=== PATIENT | female | born 1980 | race Caucasian/White ===

== ENCOUNTER 2019-03-23 15:01 | Outpatient (CLI) | payer OTHER, BC, SELFPAY ==
--- NOTE | ~2019-03-23 | US_ITS ---
EXAMINATION: US venous doppler [facility] DATE: 03/23/2019 15:28 INDICATION: Chronic left lower limb deep vein thrombosis. TECHNIQUE: Grayscale ultrasound images without and with compression and Doppler ultrasound images of the left lower extremity veins were obtained. COMPARISON: Ultrasound 11/29/2018 FINDINGS: The visualized portions of left common femoral vein, profunda (deep) femoral vein, femoral vein, popl iteal vein, peroneal veins, posterior tibial veins, and greater saphenous vein outflow are patent. IMPRESSION: 1. No deep venous thrombosis. Reviewed, dictated and finalized at location A. FACTURER REPRESENTATIVE
== END 2019-03-23 15:02 | disposition home or self-care (01) ==
LOC: ANHIMG 15:05
PROVIDERS: PCP Emergency Medicine; Visit Provider Internal Medicine Hematology & Oncology
DX: I82.5Z2 Chronic embolism and thrombosis of unspecified deep veins of left distal lower extremity (principal)
CPT/HCPCS: 93971

== ENCOUNTER 2019-04-18 01:45 | Day surgery (SDC) | payer OTHER, BC, SELFPAY ==
[2019-04-14 10:55] VITALS: BMI 33.7
[2019-04-18 10:03] VITALS: BP 146/86; PULSE 73; RESP 16; TEMP 37; O2SAT 97
[2019-04-18] MEDS: LACTATED RINGERS 1,000 ML 30 ML IV CONT ×2 (10:30→12:36)
--- NOTE | 2019-04-18 11:02 | P.PNAN_ITS ---
Anes - Initial Pre Proc Eval Procedure: Operation Date: 04/18/19 12:00 Proposed Procedures p Rectal Exam Under Anesthesia, Internal Hemorrhoid Rubber Banding - Chilo May DO Date/Time: 04/18/19 11:02 Surgeon: Chilo May DO Pre Op Diagnosis: grade 1 internal hemorrhoids Patient Data Age: 38 Gender: F Height: 5 ft 6 in Weight: 92.22 kg Last Vital Signs Temp 98.6 F 04/18/19 10:03 Pulse 73 04/18/19 10:03 Resp 16 04/18/19 10:03 BP 146/86 H 04/18/19 10:03 Pulse Ox 97 04/18/19 10:03 Allergies Allergy/AdvReac Type Severity Reaction Status Date / Time Penicillins Allergy Severe RASH, Verified 04/18/19 10:17 ANAPHALAXIS strawberry Allergy Severe Anaphylactic Verified 04/18/19 10:17 Shock erythromycin base Allergy Mild Rash Verified 04/18/19 10:17 codeine AdvReac Intermediate VOMITING, Verified 04/18/19 10:17 RASH morphine AdvReac Intermediate VOMITING, Verified 04/18/19 10:17 RASH Home Medications Medication Instructions Recorded Confirmed Type nifedipine 60 mg tablet,extended 60 mg PO DAILY #90 tablet 01/04/19 04/18/19 Rx release sertraline 100 mg tablet 100 mg PO DAILY 01/04/19 04/18/19 History apixaban [Eliquis DVT-PE Treat 30D 5 mg PO DAILY 04/18/19 04/18/19 History Start] Patient hx anesthesia problems: none Family hx anesthesia problems: none 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 Questions were solicited and answers provided to the satisfaction of the patient/family/POA.
--- NOTE | 2019-04-18 11:56 | WPDHPUPDATE1 ---
History and Physical Update Update Date/Time: 04/18/19 11:56 History and Physical has been reviewed, including an updated exam of the patient. There are NO changes in the patient's condition. Risks, benefits, and alternatives have been discussed and questions answered. Patient agrees to proceed with procedure.
[2019-04-18] MEDS: CLINDAMYCIN 900 MG/NS 50 ML 900 MG/50 ML PIGGYBACK 50 MG IVPB (12:06)
[2019-04-18] MEDS: LIDO 1%/EPINEPHRINE 1:100,000 20 ML VIAL 10 ML INFILTRATE (12:19)
[2019-04-18] MEDS: KETOROLAC 30 MG/ML VIAL (*BKC) IV PUSH (12:22)
[2019-04-18 12:35] VITALS: PULSE 74; RESP 16; O2SAT 95
--- NOTE | 2019-04-18 12:39 | P.OP_ITS ---
Procedure Note - Detailed Date of procedure: 04/18/19 Pre-op diagnosis: grade 1 internal hemorrhoids Post-op diagnosis: same Procedure performed: Rectal exam under anesthesia with internal hemorrhoid rubber band ligation x3 Description of procedure: * Procedure, risks, benefits, and alternatives were discussed with the patient. Written consent was obtained and placed in chart prior to procedure. Patient was brought back to surgical suite. She was placed supine on operating table. Time-out was done to confirm patient and procedure. She was then repositioned into dorsal lithotomy position in stirrups. Her perirectal area was prepped and draped in sterile fashion using Betadine prep. Digital rectal exam was initially performed. A Hill-Shoemaker anoscope was then inserted and the anal rectal canal was carefully inspected. Hemorrhoid rubber-band ligation was performed in the right anterior, right posterior, and left posterior regions. 1% lidocaine with epinephrine was infiltrated into the hemorrhoid tissue after it was rubber banded. Careful inspection was made and no other abnormalities were noted. The anoscope was then removed. Patient was then awakened from anesthesia and transferred to recovery. Anesthesia: MAC and local (1% lidocaine with epi) Surgeon: Chilo May DO Estimated blood loss (mL): 5 Complications: No immediate complications Condition: stable Disposition: same day Findings: This is a 38-year-old woman who presented with recurrent rectal bleeding. She has a history of complicated internal hemorrhoids, and underwent THD procedure 2 years ago. She had complications after this procedure including intense perirectal swelling and thrombosed external hemorrhoids which required further procedures to treat the thrombosed external hemorrhoids. She recovered eventually from this and no longer had any bleeding, but then over the past month she has noted recurrent bleeding. She has tried fiber supplement and Sitz baths along with Anusol HC suppositories. She has not had any significant relief with these measures. Discussions were made with the patient about treatment options. She had significant discomfort with digital rectal exam in the office, therefore recommendation was made for rectal exam under anesthesia with internal hemorrhoid rubber banding. Rectal exam under anesthesia was performed. The patient did not have any evidence of fissure, mass, or any other unexpected abnormality. She did have some engorged and somewhat friable hemorrhoid tissue. This appeared to be more predominant in the right posterior region, but also had significant hemorrhoids in the right anterior and left posterior regions. Internal hemorrhoid rubber banding was performed in all 3 locations. No specimens were obtained for pathology.
[2019-04-18 13:00] VITALS: BP 96/58; PULSE 64; O2SAT 97
[2019-04-18 13:30] VITALS: BP 100/60; PULSE 62; O2SAT 97
--- NOTE | 2019-04-18 13:57 | SUR.PHASEII ---
Patient was slow to wake-up after IV sedation. RN didn't get patient out of stretcher and to a chair until about 1355. Family invited to come sit with patient shortly after.
[2019-04-18 14:00] VITALS: BP 114/73; PULSE 70
[2019-04-18 14:30] VITALS: BP 112/73; PULSE 64
== END 2019-04-18 14:45 | disposition home or self-care (01) ==
PROVIDERS: PCP Emergency Medicine; Visit Provider Surgery
PROC: (CPT 46221; principal; 2019-04-18 12:00)
DX: K64.0 First degree hemorrhoids (principal); I10 Essential (primary) hypertension; Z87.891 Personal history of nicotine dependence
CPT/HCPCS: 46221; A9270; J1100; J1885; J2250; J2405; J2704; J3010; J7120

== ENCOUNTER 2019-08-25 11:30 | Outpatient (CLI) | payer OTHER, BC, SELFPAY ==
--- NOTE | ~2019-08-25 | US_ITS ---
EXAMINATION: US pelvic complete w TV DATE: 08/25/2019 12:11 INDICATION: Left lower quadrant abdominal pain TECHNIQUE: Multiple transabdominal and endovaginal sonographic images of the pelvis were obtained. COMPARISON: 07/27/2006 FINDINGS: The uterus is not visualized and is reportedly surgically absent. The vaginal cuff is unremarkable. N o abnormal mass or fluid collections identified at the uterine fossa. The right ovary is not visualiz ed and is also reportedly surgically absent. No abnormal mass at the right adnexa. The left ovary janett sures 3.9 x 2.8 x 2.0 cm. There are a few small anechoic follicles in the left ovary the largest harper uring up to 1.3 cm. Vascular flow is identified in the left ovary on color Doppler with both venous a nd low resistance arterial waveforms. IMPRESSION: 1. A few follicles measuring up to 1.3 cm the left ovary which demonstrates normal arterial and venou s flow on color Doppler. 2. Status post hysterectomy and right oophorectomy with no abnormal mass or fluid collections at the uterine fossa or right adnexa. Reviewed, dictated and finalized at location A. IMPRESSION: 1. A few follicles measuring up to 1.3 cm the left ovary which demonstrates nor mal arterial and venous flow on color Doppler. 2. Status post hysterectomy and right oophorectomy with no abnormal mass or flu id collections at the uterine fossa or right adnexa.
== END 2019-08-25 11:31 | disposition home or self-care (01) ==
PROVIDERS: PCP Emergency Medicine; Visit Provider Obstetrics & Gynecology
DX: R10.32 Left lower quadrant pain (principal); Z90.710 Acquired absence of both cervix and uterus; Z90.721 Acquired absence of ovaries, unilateral
CPT/HCPCS: 76830; 76856

== ENCOUNTER 2019-08-29 12:28 | Outpatient (CLI) | payer OTHER, BC, SELFPAY ==
--- NOTE | ~2019-08-29 | CT_ITS ---
EXAMINATION: CT abdomen pelvis w con DATE: 08/29/2019 13:49 INDICATION: Left lower quadrant abdominal pain TECHNIQUE: Computed tomography (CT) of the abdomen and pelvis was performed with 100 cc Omnipaque 350 intravenous contrast. Automated exposure control and iterative reconstruction technique were employe d. Exam dose: 732.00 mGy-cm total exam DLP. COMPARISON: None. FINDINGS: There is minimal discoid atelectasis or scarring in the posterior left lung base, mild bila teral dependent lower lobe atelectasis. The included lower lung zones are otherwise clear. Mild cardiomegaly. No pericardial or pleural effusion. The gallbladder is present. No gallbladder wall thickening or pericholecystic fluid or inflammation. No bile duct or pancreatic duct dilatation. No hepatic, splenic, pancreatic, and adrenal space-occupying mass lesion is evident. Normal appendix. No bowel obstruction, bowel wall thickening, pneumatosis or intraperitoneal free air is evident. There is diverticulosis of the sigmoid colon but no CT evidence of diverticulitis is det ected. The urinary bladder is unremarkable. The uterus and right ovary are absent. There are multiple left o varian cysts measuring up to 1.6 cm approximately. Normal caliber of the abdominal aorta. No intraperitoneal or retroperitoneal or pelvic mass lesion or adenopathy or ascites. IMPRESSION: Diverticulosis of the colon; no CT evidence of diverticulitis Normal appendix Status post hysterectomy and right oophorectomy; multiple up to 1.6 in the medial left ovarian cysts Reviewed, dictated and finalized at Location A. Reviewed, dictated and finalized at location B. IMPRESSION: Diverticulosis of the colon; no CT evidence of diverticulitis Normal appendix Status post hysterectomy and right oophorectomy; multiple up to 1.6 in the medi al left ovarian cysts
[2019-08-29 13:35] LABS: Estimated Glomerular Filt Rate > 60
== END 2019-08-29 12:29 | disposition home or self-care (01) ==
PROVIDERS: PCP Emergency Medicine; Visit Provider Obstetrics & Gynecology
DX: R10.32 Left lower quadrant pain (principal); K57.90 Diverticulosis of intestine, part unspecified, without perforation or abscess without bleeding; N83.202 Unspecified ovarian cyst, left side; Z90.710 Acquired absence of both cervix and uterus
CPT/HCPCS: 36415; 74177; Q9967

== ENCOUNTER 2019-09-02 07:02 | Outpatient (CLI) | payer OTHER, BC, SELFPAY | END 2019-09-02 07:03 | disposition home or self-care (01) | PROVIDERS: PCP Emergency Medicine; Visit Provider Obstetrics & Gynecology | DX: R10.2 Pelvic and perineal pain (principal); Z01.812 Encounter for preprocedural laboratory examination | CPT/HCPCS: 36415; 86850; 86900; 86901 ==

== ENCOUNTER 2019-09-02 10:43 | Emergency (ER) | payer OTHER, BC, SELFPAY ==
--- NOTE | ~2019-09-02 | CT_ITS ---
EXAMINATION: CT abdomen pelvis w con EXAM DATE: 09/02/2019 11:53 INDICATION: Nausea vomiting and low abdominal pain. TECHNIQUE: Spiral CT of the abdomen and pelvis was performed following intravenous injection of 100 m L Omnipaque 350. Axial, coronal and sagittal images were reviewed. The dose-length product (DLP) fo r this examination was 793.62 mGy-cm. The exposure was tailored according to patient size (auto mA e xposure control), and iterative reconstruction (ASIR) was used as additional dose reduction technique . Comparison is made to prior examination from 08/29/2019. FINDINGS: The liver, spleen, adrenal glands and pancreas are unremarkable. Gallbladder is unremarkab le. No biliary obstruction. Portal and splenic veins are patent. Kidneys enhance symmetrically. T here is no hydronephrosis. The uterus is not identified and has likely been surgically resected. T he bladder is unremarkable. There is no retroperitoneal or pelvic lymphadenopathy. The appendix is normal. There is mild scattered colonic diverticulosis. There is no adjacent inflamm atory change to suggest diverticulitis. The stomach and small bowel are unremarkable. There is expec janki amount of colonic stool. No free intraperitoneal gas. The heart is normal in size. There are no pericardial or pleural effusions. The lung bases are unremarkable. There are no osteoblastic or osteolytic lesions identified. IMPRESSION: 1. No acute intra-abdominal findings. 2. Mild scattered colonic diverticulosis. Reviewed, dictated and finalized at location G.
--- NOTE | ~2019-09-02 | US_ITS ---
US pelvic complete DATE: 09/02/2019 12:49 INDICATION: Abdominal and pelvic pain. History of hysterectomy and right oophorectomy. TECHNIQUE: Real-time imaging of the pelvis via transabdominal approach. COMPARISON: 08/25/2019 pelvic ultrasound with transvaginal views 08/29/2019 CT abdomen pelvis FINDINGS: Surgically absent uterus and right ovary by clinical history. Approximately 1.7 x 10 x 1.5 cm left ovarian the left ovary measures 3.6 x 2.6 x 2.4 cm. There is vas cular flow to the left ovary and color flow imaging and Doppler analysis. No pelvic mass or abnormal pelvic fluid collection is noted otherwise. Cyst. IMPRESSION: Up to 1.7 cm left ovarian cyst Status post hysterectomy and right oophorectomy Reviewed, dictated and finalized at Location A. Reviewed, dictated and finalized at location A.
[2019-09-02 10:51] VITALS: BP 129/85; PULSE 76; RESP 18; TEMP 36.5; O2SAT 100
[2019-09-02] MEDS: ONDANSETRON INJ 4 MG/2 ML VIAL IV PUSH (11:11)
[2019-09-02] MEDS: SODIUM CHLORIDE 0.9% IV 1,000 ML 999 ML IV CONT (11:11)
[2019-09-02] MEDS: FAMOTIDINE 20 MG/2 ML VIAL IV PUSH (11:11)
[2019-09-02 11:20] LABS: Basophils Absolute Auto 0.1 K/mm3 (0.0-0.1); Basophils Percent Auto 0.7 % (0.2-1.2); Eosinophils Absolute Auto 0.4 K/mm3 (0-0.3); Eosinophils Percent Auto 3.8 % (0-4.4); Hematocrit 44.9 % (37.0-47.0); Hemoglobin 14.7 g/dL (12.0-15.0); Immature Granulocyte Absolute 0.02 K/mm3 (0.00-0.031); Immature Granulocyte Percent A 0.2 % (0-0.5); Lymphocytes Absolute Auto 1.79 K/mm3 (0.9-3.2); Lymphocytes Percent Auto 18.6 % (18.3-44.2); Mean Corpuscular HGB Conc 32.7 g/dl (32-36); Mean Corpuscular Hemoglobin 28.4 pg (26-34); Mean Corpuscular Volume 86.7 fl (80-100); Mean Platelet Volume 10.7 fl (7.4-10.4); Monocytes Absolute Auto 0.7 K/mm3 (0.1-0.6); Monocytes Percent Auto 7.6 % (2.6-8.5); Neutrophils Absolute Auto 6.6 K/mm3 (1.3-6.7); Neutrophils Percent Auto 69.1 % (45.5-73.1); Platelet Count Result 236 k/mm3 (150-375); Red Blood Count 5.18 M/mm3 (4.2-5.4); Red Cell Distribution Width 13.7 % (11.5-14.5); White Blood Count 9.6 K/mm3 (4.5-10.0)
[2019-09-02 11:21] LABS: Add Urine Microscopic? NO; Appearance Urine Clear (Clear); Bilirubin Urine Negative (Negative); Blood Urine Negative (Negative); Color Urine Colorless (Yellow); Glucose Urine UA Negative (Negative); Ketones Urine Negative (Negative); Leukocyte Esterase Ur Negative LEU/UL (Negative); Nitrate Urine Negative (Negative); Protein Urine Negative (Negative); Specific Grav Ur 1.004 (1.001-1.035); Urobilinogen Urine Negative mg/dL (<2.0)
[2019-09-02 11:35] LABS: Alanine Aminotransferase 25 U/L (4-35); Albumin Level 4.5 g/dL (3.5-5.1); Alkaline Phosphatase 96 U/L (38-126); Anion Gap 11.8 mmol/L (7-16); Aspartate Amino Transferase 41 U/L (14-36); Bilirubin,Total 0.2 mg/dL (0.2-1.3); Blood Urea Nitrogen 6 mg/dL (7-17); Calcium 9.3 mg/dL (8.4-10.2); Carbon Dioxide 30 mmol/L (22-30); Chloride 103 mmol/L (98-107); Estimated Glomerular Filt Rate > 60; Glucose 104 mg/dL (65-105); Lipase 32 U/L (23-300); Potassium 3.8 mmol/L (3.4-5.0); Sodium 141 mmol/L (137-145)
[2019-09-02 11:48] LABS: Estimated Glomerular Filt Rate > 60
[2019-09-02 12:09] VITALS: TEMP 36.5
[2019-09-02 12:17] VITALS: BP 115/70; PULSE 60; RESP 18; O2SAT 98
--- NOTE | 2019-09-02 12:26 | ED.ABDPAIN ---
HPI - Abdominal Pain General Chief Complaint: Abdominal Pain <LOGAN Robert Last Filed: 09/02/19 13:52> Stated Complaint: abd pain, n/v <LOGAN Robert Last Filed: 09/02/19 13:52> Time Seen by Provider: 09/02/19 10:47 <LOGAN Robert Last Filed: 09/02/19 13:52> Source: patient <LOGAN Robert Last Filed: 09/02/19 13:52> Mode of arrival: ambulatory <LOGAN Robert Last Filed: 09/02/19 13:52> Limitations: no limitations <LOGAN Robert Last Filed: 09/02/19 13:52> History of Present Illness HPI narrative: Patient is a 38-year-old female who presents to emergency department for evaluation of abdominal pain localized to the lower abdomen left-sided that is been present now for 10 days the initial day of pain onset patient noted aching pain that radiates to the back in the left lower abdomen patient denies similar occurrence in the past the next day she saw her landscape foreman who evaluated her and did pelvic ultrasound which was unremarkable patient then on Wednesday was reevaluated had CAT scan of the abdomen pelvis with contrast which was unremarkable and patient was started on ciprofloxacin which she has been taking with no improvement patient is also been on hydrocodone during this period and notes she has not had a bowel movement since when the pain began. Patient notes that she threw up twice today. Patient on arrival in the room in no distress. Patient denies any urinary or vaginal complaints or any URI symptoms. Patient is scheduled for laparoscopically following Wednesday by her landscape foreman to look for a cause of her pain <LOGAN Robert Last Filed: 09/02/19 13:52> Related Data Home Medications: Home Medications Medication Instructions Recorded Confirmed sertraline 100 mg tablet 100 mg PO DAILY 01/04/19 09/01/19 Linzess 1 tablet PO DAILY 09/01/19 09/01/19 aspirin 81 mg PO DAILY 09/01/19 09/01/19 folic acid 1 tablet PO DAILY 09/01/19 09/01/19 hydrocodone-acetaminophen 1 tablet PO DIRECTED PRN 09/01/19 09/01/19 <Dustin Tovar PA-C - Last Filed: 09/02/19 13:52> Allergies/Adverse Reactions: Allergies Allergy/AdvReac Type Severity Reaction Status Date / Time Penicillins Allergy Severe RASH, Verified 09/02/19 11:04 ANAPHALAXIS strawberry Allergy Severe Anaphylactic Verified 09/02/19 11:04 Shock erythromycin base Allergy Mild Rash Verified 09/02/19 11:04 codeine AdvReac Intermediate VOMITING, Verified 09/02/19 11:04 RASH morphine AdvReac Intermediate VOMITING, Verified 09/02/19 11:04 RASH <Dustin Tovar PA-C - Last Filed: 09/02/19 13:52> Review of Systems Review of Systems: All systems reviewed & are unremarkable except as noted in HPI and below <Dustin Tovar PA-C - Last Filed: 09/02/19 13:52> PMFSH Past Medical History Medical History: Medical History History of blood clots clots in the leg and lung HTN (hypertension) <Dustin Tovar PA-C - Last Filed: 09/02/19 13:52> Surgical History Surgical History: Surgical History H/O: hysterectomy <Dustin Tovar PA-C - Last Filed: 09/02/19 13:52> Social History Social History: Social History Smoking packs per day: 0.5 Smoking cigarettes per day: 10.0 Years smoked: 20 Smoking pack-years: 10.00 Smoking status: Former smoker Tobacco type: cigarettes Additional smoking assessment comments: QUIT 05/2018 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 HEAD: Normocep
[2019-09-02 12:33] VITALS: TEMP 36.5
[2019-09-02] MEDS: IBUPROFEN IV 800 MG/200 ML 800 MG/200 ML BAG 400 MG IVPB (12:33)
[2019-09-02 14:06] VITALS: BP 131/92; PULSE 65; RESP 18; O2SAT 100
[2019-09-02 23:05] LABS: SARS-CoV-2 RNA PCR Negative
== END 2019-09-02 14:07 | disposition home or self-care (01) ==
PROVIDERS: Emergency Medicine Emergency Medical Services; Emergency Provider General Practice; PCP Emergency Medicine
DX: N83.202 Unspecified ovarian cyst, left side (principal); K59.00 Constipation, unspecified; Z11.59 Encounter for screening for other viral diseases; I10 Essential (primary) hypertension; Z87.891 Personal history of nicotine dependence; K57.90 Diverticulosis of intestine, part unspecified, without perforation or abscess without bleeding
CPT/HCPCS: 36415; 74177; 76856; 80053; 81003; 81025; 83690; 85025; 87635; 96361; 96365; 96375; 99284; C9803; J0131; J1741; J2405; J7030; Q9967; U0003

== ENCOUNTER 2019-09-05 01:28 | Day surgery (SDC) | payer OTHER, BC, SELFPAY ==
[2019-09-01 11:51] VITALS: BMI 32.9
--- NOTE | 2019-09-04 09:48 | PM.IMHP ---
H&P: HPI History of Present Illness Chief complaint: Pelvic Pain Narrative: Donavan Matos is a 38 year old female Status post hysterectomy is admitted for diagnostic laparoscopy and possible left Salpingo-oophorectomy. She has severe pain. She had a complete workup for possibility of GI issues and has been negative. She had a scan in the ER which showed a left ovarian cyst risks and benefits of laparoscopy were reviewed. Review of Systems Review of Systems: All systems reviewed & are unremarkable except as noted in HPI and below PMFSH Past Medical History Medical History History of blood clots clots in the leg and lung HTN (hypertension) Surgical History Surgical History H/O: hysterectomy Family History Family History Other Family history of allergic disorder Family history of cardiovascular disease Family history of malignant neoplasm Hypertension Social History Social History Smoking packs per day: 0.5 Smoking cigarettes per day: 10.0 Years smoked: 20 Smoking pack-years: 10.00 Smoking status: Former smoker Tobacco type: cigarettes Additional smoking assessment comments: QUIT 05/2018 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 Gender identity (if verbalized by the patient): Female Spiritual care concerns: No Meds Home Medications and Allergies Home Medications Medication Instructions Recorded Confirmed Type nifedipine 60 mg tablet,extended 60 mg PO DAILY #90 tablet 01/04/19 09/01/19 Rx release sertraline 100 mg tablet 100 mg PO DAILY 01/04/19 09/01/19 History aspirin 81 mg PO DAILY 09/01/19 09/01/19 History folic acid 1 tablet PO DAILY 09/01/19 09/01/19 History hydrocodone-acetaminophen 1 tablet PO DIRECTED PRN 09/01/19 09/01/19 History glycerin (adult) 1 supp RECTAL DAILY PRN #3 each 09/02/19 Rx polyethylene glycol 3350 [Miralax] 17 gm PO BID #119 gm 09/02/19 Rx ciprofloxacin HCl 500 mg PO BID 09/04/19 09/04/19 History linaclotide [Linzess] 290 mcg PO DAILY 09/04/19 09/04/19 History ondansetron 4 mg PO Q6H PRN 09/04/19 09/04/19 History Allergies Allergy/AdvReac Type Severity Reaction Status Date / Time Penicillins Allergy Severe RASH, Verified 09/02/19 11:04 ANAPHALAXIS strawberry Allergy Severe Anaphylactic Verified 09/02/19 11:04 Shock erythromycin base Allergy Mild Rash Verified 09/02/19 11:04 codeine AdvReac Intermediate VOMITING, Verified 09/02/19 11:04 RASH morphine AdvReac Intermediate VOMITING, Verified 09/02/19 11:04 RASH Exam Const: General: no acute distress Eyes: General: appearance normal, both eyes and all related structures Neck: Neck: supple and no JVD Thyroid: thyroid normal Resp: Effort & Inspection: normal respiratory effort Auscultation: clear to auscultation bilaterally Cardio: Rate: regular rate Rhythm: regular rhythm GI: Inspection: non-distended GI Palp: Yes Soft to palpation, No Tenderness to palpation present (GI) and No Guarding due to palpation present (GI) Auscultation: normal bowel sounds : External Female Exam: normal external appearance Speculum Exam - Vagina: normal appearance of the vagina Speculum Exam - Cervix: Cervix absent Bimanual exam- vagina & uterus: uterus absent Bimanual Exam- Adnexa, other: tender (left) Skin: General skin exam: no rashes or lesions noted Extrem: General: normal to inspection and no edema Psych: Mental Status: mental status grossly normal Affect: normal affect Assessment and Plan Additional Plan Impression pelvic pain and ovarian cyst Plan: Diagnostic laparoscopy and possible left salpingo-oophorectomy
[2019-09-05] VITALS (8 sets, daily range): BP systolic 91–128; BP diastolic 60–87; PULSE 68–84; RESP 12–16; TEMP 36.9–37; O2SAT 96–100
--- NOTE | 2019-09-05 06:49 | WPDHPUPDATE1 ---
History and Physical Update Update Date/Time: 09/05/19 06:49 History and Physical has been reviewed, including an updated exam of the patient. There are NO changes in the patient's condition. Risks, benefits, and alternatives have been discussed and questions answered. Patient agrees to proceed with procedure.
--- NOTE | 2019-09-05 06:50 | WPDHPUPDATE1 ---
History and Physical Update Update Date/Time: 09/05/19 06:50 History and Physical has been reviewed, including an updated exam of the patient. There are NO changes in the patient's condition. Risks, benefits, and alternatives have been discussed and questions answered. Patient agrees to proceed with procedure.
--- NOTE | 2019-09-05 08:26 | WPDANESEPPF ---
Anes - Initial Pre Proc Eval Procedure: Operation Date: 09/05/19 13:30 Proposed Procedures p Diagnostic Laparoscopy - Elvin Heaton MD Date/Time: 09/05/19 08:26 Surgeon: Elvin Heaton MD Pre Op Diagnosis: Pelvic Pain Patient Data Age: 38 Gender: F Height: 1.68 m Weight: 92.53 kg Allergies Allergy/AdvReac Type Severity Reaction Status Date / Time Penicillins Allergy Severe RASH, Verified 09/02/19 11:04 ANAPHALAXIS strawberry Allergy Severe Anaphylactic Verified 09/02/19 11:04 Shock erythromycin base Allergy Mild Rash Verified 09/02/19 11:04 codeine AdvReac Intermediate VOMITING, Verified 09/02/19 11:04 RASH morphine AdvReac Intermediate VOMITING, Verified 09/02/19 11:04 RASH Home Medications Medication Instructions Recorded Confirmed Type nifedipine 60 mg tablet,extended 60 mg PO DAILY #90 tablet 01/04/19 09/01/19 Rx release sertraline 100 mg tablet 100 mg PO DAILY 01/04/19 09/01/19 History aspirin 81 mg PO DAILY 09/01/19 09/01/19 History folic acid 1 tablet PO DAILY 09/01/19 09/01/19 History hydrocodone-acetaminophen 1 tablet PO DIRECTED PRN 09/01/19 09/01/19 History glycerin (adult) 1 supp RECTAL DAILY PRN #3 each 09/02/19 09/04/19 Rx polyethylene glycol 3350 [Miralax] 17 gm PO BID #119 gm 09/02/19 09/04/19 Rx ciprofloxacin HCl 500 mg PO BID 09/04/19 09/04/19 History linaclotide [Linzess] 290 mcg PO DAILY 09/04/19 09/04/19 History ondansetron 4 mg PO Q6H PRN 09/04/19 09/04/19 History hydrocodone-acetaminophen [Partridge] 1 tablet PO Q4H PRN #30 tablet 09/05/19 Rx Patient hx anesthesia problems: none Family hx anesthesia problems: none PMFSH Past Medical History Medical History (Updated 09/05/19 @ 08:31 by Arturo Bustos MD) H/O long-term (current) use of anticoagulants History of blood clots clots in the leg and lung History of pulmonary embolus (PE) HTN (hypertension) Obesity Surgical History Surgical History H/O: hysterectomy Family History Family History Other Family history of allergic disorder Family history of cardiovascular disease Family history of malignant neoplasm Hypertension Social History Social History Smoking packs per day: 0.5 Smoking cigarettes per day: 10.0 Years smoked: 20 Smoking pack-years: 10.00 Smoking status: Former smoker Tobacco type: cigarettes Additional smoking assessment comments: QUIT 05/2018 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 Questions were solicited and answers provided to the satisfaction of the patient/family/POA.
[2019-09-05] MEDS: ACETAMINOPHEN 500 MG TABLET 1000 MG PO (12:11)
[2019-09-05] MEDS: LACTATED RINGERS 1,000 ML 30 ML IV CONT ×2 (12:19→14:51)
[2019-09-05] MEDS: KETOROLAC 15 MG/ML VIAL (*BKC) IV PUSH (12:22)
--- NOTE | 2019-09-05 13:52 | P.OP_ITS ---
Procedure Note - Detailed Date of procedure: 09/05/19 Pre-op diagnosis: Pelvic Pain Surgeon: Elvin Heaton MD Postop diagnosis: Pelvic pain/ left ovarian cyst / pelvic adhesions Procedure: Laparoscopy: Lysis of adhesions / left salpingo-oophorectomy EBL: 5Cc : Complications: None Findings: Absent uterus and right ovary and tube. Complex appearing left ovarian cyst. Multiple adhesions on the left. Anesthesia: General endotracheal Description of procedure: The patient was prepped draped in normal sterile fashion placed in the dorsal lithotomy position. Under excellent general trach anesthesia weighted speculum placed posterior fornix vagina. Sponge stick was placed in the bladder draining clear urine. The weighted speculum was removed. Gloves were changed. An infraumbilical incision made the Veress needle passed in the abdomen. Abdomen was filled with CO2 gas [id number]. The 5mm trocar was advanced under direct visualization assuring no injury. The patient was placed in Trendelenburg and suprapubic incision made the 5mm trocar advanced under direct visualization assuring no injury. A left upper quadrant incision made and the 10mm trocar advanced under direct visualization. The above findings were seen using a [place] tugged method for stretching the omentum and scar tissue from the bowel to the tube carefully avoiding injury to the bowel this was sharply dissected freeing this from the large moderate sized ovarian cyst. The infundibulopelvic structure was then skeletonized. This was serially clamped, burned, cut. This was then placed in Endo-Catch and removed through the left lower quadrant. Irrigation was undertaken until clear. The pelvis appeared clean after that after irrigation was performed. The lower site removed. The gas removed from the abdomen and the upper site removed the 4 O Monocryl a and closed with 4 Monocryl and Bro. Patient tolerated the procedure well and went to recovery in satisfactory condition. All sponge, needle, instrument counts were correct. There were no immediate complications
== END 2019-09-05 16:28 | disposition home or self-care (01) ==
PROVIDERS: PCP Emergency Medicine; Visit Provider Obstetrics & Gynecology
PROC: (CPT 49320; principal; 2019-09-05 13:30)
DX: R10.2 Pelvic and perineal pain (principal); N83.202 Unspecified ovarian cyst, left side; N73.6 Female pelvic peritoneal adhesions (postinfective); I10 Essential (primary) hypertension; E66.9 Obesity, unspecified; Z68.33 Body mass index [BMI] 33.0-33.9, adult; Z87.891 Personal history of nicotine dependence; Z79.82 Long term (current) use of aspirin
CPT/HCPCS: 58661; 88305; A9270; J0330; J1100; J1885; J2250; J2405; J2704; J3010; J7120

== ENCOUNTER 2019-09-18 15:23 | Outpatient (CLI) | payer OTHER, BC, SELFPAY ==
--- NOTE | ~2019-09-18 | US_ITS ---
EXAMINATION: US venous doppler LE RT DATE: 09/18/2019 16:15 INDICATION: Right lower limb pain. TECHNIQUE: Grayscale ultrasound images without and with compression and Doppler ultrasound images of the right lower extremity veins were obtained. COMPARISON: Ultrasound 10/25/2018 FINDINGS: The visualized portions of right common femoral vein, profunda (deep) femoral vein, femoral vein, pop liteal vein, peroneal veins, posterior tibial veins, and greater saphenous vein outflow are patent. IMPRESSION: 1. No deep venous thrombosis. Reviewed, dictated and finalized at location B.
== END 2019-09-18 15:24 | disposition home or self-care (01) ==
PROVIDERS: PCP Emergency Medicine; Visit Provider Obstetrics & Gynecology
DX: M79.669 Pain in unspecified lower leg (principal)
CPT/HCPCS: 93971

== ENCOUNTER 2019-12-11 09:57 | Outpatient (CLI) | payer OTHER, BC, SELFPAY | END 2019-12-11 09:58 | disposition home or self-care (01) | LOC: ANHLAB 09:59 | PROVIDERS: PCP Emergency Medicine; Visit Provider Internal Medicine Hematology & Oncology | DX: I82.5Z2 Chronic embolism and thrombosis of unspecified deep veins of left distal lower extremity (principal) | CPT/HCPCS: 36415; 81240 ==

== ENCOUNTER 2020-03-16 10:27 | Emergency (ER) | payer OTHER, BC, SELFPAY ==
--- NOTE | ~2020-03-16 | CT_ITS ---
EXAMINATION: CT brain wo con DATE: 03/16/2020 11:33 INDICATION: Left-sided headache. TECHNIQUE: Computed tomography (CT) of the head was performed without intravenous contrast. The mA wa s adjusted according to patient size. Iterative reconstruction technique was employed. The dose-lengt h product was 605.33 mGy-cm. COMPARISON: None FINDINGS: There is no intracranial hemorrhage, acute infarction, or abnormal intracranial mass lesion . The ventricles are normal in size. The orbits are normal. There is mild mucosal thickening in the p aranasal sinuses. The mastoid air cells are normal. IMPRESSION: 1. Normal brain. Reviewed, dictated and finalized at location A. ER BABYSITTER IMPRESSION: 1. Normal brain.
[2020-03-16 10:32] VITALS: BP 143/100; PULSE 85; RESP 20; TEMP 36.9; O2SAT 100
--- NOTE | 2020-03-16 11:18 | ED.HA ---
HPI - Headache General Chief Complaint: Headache Stated Complaint: headache Time Seen by Provider: 03/16/20 11:07 Source: patient Mode of arrival: ambulatory Limitations: no limitations History of Present Illness HPI Narrative: This is a 39-year-old female that presents to the emergency department for headaches x5 days. Reports the pain is on the left side of her head and pounding in nature. Associated with photophobia, nausea, and vomiting. Does report history of migraines years ago. Reports the headaches have continued to return every day. She did have some Fioricet that she has taken with little relief. Denies fever, stiff neck, weakness, or numbness. Related Data Home Medications Medication Instructions Recorded Confirmed alprazolam 2 mg tablet 2 mg PO DAILY PRN tablet 02/20/20 Allergies Allergy/AdvReac Type Severity Reaction Status Date / Time Penicillins Allergy Severe RASH, Verified 03/16/20 11:04 ANAPHALAXIS strawberry Allergy Severe Anaphylactic Verified 03/16/20 11:04 Shock erythromycin base Allergy Mild Rash Verified 03/16/20 11:04 codeine AdvReac Intermediate VOMITING, Verified 03/16/20 11:04 RASH morphine AdvReac Intermediate VOMITING, Verified 03/16/20 11:04 RASH Review of Systems Review of Systems: Narrative: CONSTITUTIONAL: Denies fever EYES: Reports visual changes GASTROINTESTINAL: Reports nausea, vomiting SKIN: Denies rash NEUROLOGIC: Reports headache. Denies numbness, or weakness. PSYCHIATRIC: Reports anxiety and depression. All systems reviewed & are unremarkable except as noted in HPI and below PMFSH Past Medical History Medical History H/O long-term (current) use of anticoagulants History of blood clots clots in the leg and lung History of pulmonary embolus (PE) HTN (hypertension) Obesity Surgical History Surgical History H/O: hysterectomy Family History Family History Other Family history of allergic disorder Family history of cardiovascular disease Family history of malignant neoplasm Hypertension Social History Social History Smoking packs per day: 0.5 Smoking cigarettes per day: 10.0 Years smoked: 20 Smoking pack-years: 10.00 Smoking status: Former smoker Tobacco type: cigarettes Additional smoking assessment comments: QUIT 05/2018 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 HEAD: Normocephalic, atraumatic. EYES: PERRLA and EOMI. ENT: Nares clear, no rhinorrhea or epistaxis. Mucous membranes moist. Oropharynx without tonsillar hypertrophy exudate or other lesions. Bilateral TMs pearly souza non-bulging NECK: Supple. No adenopathy or masses. CHEST: Clear to auscultation. No respiratory distress. No wheezes rales or rhonchi HEART: Regular rate and rhythm. No murmur heard. Normal peripheral pulses. EXTREMITIES: Normal range of motion. No edema. Strength equal in bilateral upper and lower extremities (5/5) SKIN: Warm, dry, no rash. NEURO: No focal deficits. Alert and oriented x3. Cranial nerves II through XII grossly intact. Normal hip motion PSYCH: Normal mood and affect Course Vital Signs Vital signs: Vital Signs Temperature 98.4 F 03/16/20 10:32 Pulse Rate 85 03/16/20 10:32 Respiratory Rate 20 03/16/20 10:32 Blood Pressure 143/100 H 03/16/20 10:32 Pulse Oximetry 100 03/16/20 10:32 Temperature 98.3 F 03/16/20 12:11 Pulse Rate 65 03/16/20 12:11 Respiratory Rate 18 03/16/20 12:11 Blood Pressure 117/90 03/16/20 12:11 Pulse Oximetry 97 03/16/20 12:11 MDM - Headache
[2020-03-16] MEDS: SODIUM CHLORIDE 0.9% IV 1,000 ML 999 ML IV CONT (11:56)
[2020-03-16] MEDS: METOCLOPRAMIDE HCL INJ 10 MG/2 ML VIAL IV PUSH (11:58)
[2020-03-16] MEDS: diphenhydrAMINE HCl INJ 50 MG/ML VIAL 25 MG IV PUSH (12:01)
[2020-03-16] MEDS: KETOROLAC 30 MG/ML VIAL (*BKC) IV PUSH (12:02)
[2020-03-16 12:11] VITALS: BP 117/90; PULSE 65; RESP 18; TEMP 36.8; O2SAT 97
[2020-03-16 13:00] VITALS: BP 123/81; PULSE 62; RESP 16; TEMP 37; O2SAT 99
[2020-03-16 14:00] VITALS: BP 113/78; PULSE 75; RESP 18; TEMP 36.7; O2SAT 98
[2020-03-16 15:00] VITALS: BP 121/75; PULSE 70; RESP 18; TEMP 36.4; O2SAT 99
== END 2020-03-16 15:00 | disposition home or self-care (01) ==
PROVIDERS: Emergency Provider Emergency Medicine; PCP Emergency Medicine
DX: R51.9 Headache, unspecified (principal); Z86.711 Personal history of pulmonary embolism; Z79.01 Long term (current) use of anticoagulants; I10 Essential (primary) hypertension; E66.8 Other obesity; Z68.29 Body mass index [BMI] 29.0-29.9, adult; Z87.891 Personal history of nicotine dependence
CPT/HCPCS: 70450; 96361; 96374; 96375; 99284; J0131; J1100; J1200; J1885; J2765; J7030

== ENCOUNTER 2020-04-22 07:40 | Outpatient (CLI) | payer OTHER, BC, SELFPAY ==
--- NOTE | ~2020-04-22 | MM_ITS ---
EXAMINATION: MM screening sea BI w elsie HISTORY: Screening TECHNIQUE: Craniocaudal and mediolateral oblique 3-D tomosynthesis images were obtained and synthetic 2-D images were generated. CAD analysis was submitted and interpreted. COMPARISON: 12/06/2018 BREAST PARENCHYMAL COMPOSITION: The breasts are heterogeneously dense, which may obscure small masses . FINDINGS: There is no evidence of suspicious mass, calcification, or architectural distortion to sugg est malignancy in either breast. There has been no suspicious interval change. IMPRESSION: 1. No mammographic evidence of malignancy. 2. Recommend routine screening mammography in one year. BI-RADS Category 1: Negative Reviewed, dictated and finalized at location A.
== END 2020-04-22 07:41 | disposition home or self-care (01) ==
LOC: ANHIMG 07:43
PROVIDERS: PCP Family Medicine; Visit Provider Obstetrics & Gynecology
DX: Z12.31 Encounter for screening mammogram for malignant neoplasm of breast (principal)
CPT/HCPCS: 77063; 77067

== ENCOUNTER 2020-05-01 07:34 | Outpatient (CLI) | payer OTHER, BC, SELFPAY ==
--- NOTE | ~2020-05-01 | MR_ITS ---
EXAMINATION: MR brain/brain stem wo con DATE: 05/01/2020 09:23 CDT INDICATION: Headache TECHNIQUE: Magnetic resonance imaging (MRI) of the brain and brainstem was performed without intraven ous contrast. Sequences included sagittal and axial T1-weighted SE, axial diffusion-weighted FS SE, a xial T2*-weighted GRE, axial T2-weighted FLAIR Propeller, and axial T2-weighted Propeller. Apparent d iffusion coefficient (ADC) maps were created. COMPARISON: CT dated 03/16/2020 FINDINGS: The brain volume and ventricular system are within normal limits. The brain parenchymal si gnal intensity pattern and souza/white matter is normal and there is no evidence of hemorrhage, space occupying masses or infarctions. The flow signal voids of the major arterial structures about the [place] and within the margaret r dural venous sinuses appear grossly unremarkable and patent. The seventh and eighth cranial nerve complexes are normal. The mid sagittal image demonstrates a normal craniovertebral junction and seamus us callosum. The paranasal sinuses are grossly unremarkable. IMPRESSION: 1: Unremarkable MRI of the brain. Reviewed, dictated and finalized at location A.
== END 2020-05-01 07:35 | disposition home or self-care (01) ==
PROVIDERS: PCP Family Medicine; Visit Provider Nurse Practitioner Family
DX: R51.9 Headache, unspecified (principal); R68.89 Other general symptoms and signs
CPT/HCPCS: 70551

== ENCOUNTER 2020-07-01 21:02 | Observation (INO) | payer OTHER, BC, SELFPAY ==
--- NOTE | ~2020-07-01 | CT_ITS ---
EXAMINATION: CT BRAIN W/O DATE: 07/01/2020 21:53 INDICATION: Numbness right side of face. TECHNIQUE: Computed tomography (CT) of the head was performed without intravenous contrast. The dose- length product was 605.33 mGy-cm. Automated exposure control and iterative reconstruction technique w ere employed. COMPARISON: CT dated 03/16/2020 FINDINGS: Normal brain parenchymal volume for age. Normal souza-white differentiation. No acute intrac ranial hemorrhage, infarction, mass or mass effect. No ventriculomegaly or midline shift. Midline sagittal images demonstrate a normal corpus callosum, c raniovertebral junction and sella turcica. Basilar cisterns are patent. Paranasal sinuses and mastoids are pneumatized. No depressed skull fractures. IMPRESSION: 1. No acute intracranial abnormality. Reviewed, dictated and finalized at location A.
--- NOTE | ~2020-07-01 | XR_ITS ---
EXAMINATION: XR chest 1V 07/01/2020 21:54 INDICATION: Right-sided body numbness PROCEDURE: AP view of the chest COMPARISON: 07/13/2016 FINDINGS: The lungs are clear. The cardiomediastinal silhouette is within normal limits. There are no pleural effusions. There is no pneumothorax suspected. IMPRESSION: 1: NO ACUTE CARDIOPULMONARY DISEASE. Reviewed, dictated and finalized at location A.
--- NOTE | ~2020-07-01 | MR_ITS ---
EXAMINATION: MR brain/brain stem wo/w con DATE: 07/02/2020 09:05 INDICATION: Right hemiparesis. TECHNIQUE: Magnetic resonance imaging (MRI) of the brain and brainstem was performed without and with 15 mL MultiHance intravenous contrast. Sequences included sagittal and axial T1-weighted FSE, axial diffusion-weighted FS EPI, axial T2*-weighted GRE, axial T2-weighted FLAIR Propeller, and axial T2-we ighted Propeller. Postcontrast sequences included axial and coronal T1-weighted FSE. Apparent diffusi on coefficient (ADC) maps were created. COMPARISON: Brain MRI 05/01/2020, head CT 07/01/2020 FINDINGS: There is no intracranial hemorrhage, acute infarction, or abnormal intracranial mass lesion . The ventricles are normal in size. There is mild mucosal thickening in sphenoid sinus. The orbits a re normal. The mastoid air cells are normal. IMPRESSION: 1. Normal brain. Reviewed, dictated and finalized at location B. IMPRESSION: 1. Normal brain.
--- NOTE | ~2020-07-01 | CT_ITS ---
EXAMINATION: CTA brain carotid DATE: 07/01/2020 23:01 CDT INDICATION: Right-sided weakness. TECHNIQUE: Computed tomographic angiography (CTA) of the head was performed without and with 100 mL O mnipaque-350 intravenous contrast. CTA of the neck was performed with intravenous contrast. The dose- length product was 1024.54 mGy-cm. Maximum intensity projection and volume rendered 3D-reconstruction s were created by the technologist on a separate workstation. Automated exposure control and iterativ e reconstruction technique were employed. COMPARISON: CT head dated 07/01/2020. FINDINGS: HEAD CTA: Vertebral arteries are codominant. The anterior, middle and posterior cerebral arteries are symmetric. No significant atherosclerotic changes identified. No evidence for aneurysm, stenosis or occlusion. NECK CTA: Thoracic aorta is unremarkable without aneurysm or dissection. The common carotid arteries are symmetric without significant atherosclerotic change. The internal and external carotid arteries are symmetric. No evidence for dissection or significant stenosis. Thyroid gland is unremarkable. There is 0% stenosis of the proximal right internal carotid artery relative to normal distal artery l umen diameter (NASCET criteria). There is 0% stenosis of the proximal left internal carotid artery re lative to normal distal artery lumen diameter. IMPRESSION: 1.: No significant abnormality of the arteries of the head or neck. No significant stenosis, occlusi on, dissection or aneurysm. Reviewed, dictated and finalized at location A. IMPRESSION: 1.: No significant abnormality of the arteries of the head or neck. No signifi cant stenosis, occlusion, dissection or aneurysm.
[2020-07-01 21:05] VITALS: BP 145/88; PULSE 74; RESP 14; TEMP 36.6; O2SAT 100
[2020-07-01 21:34] VITALS: BP 137/78; PULSE 73; RESP 18; TEMP 36.7; O2SAT 99
--- NOTE | 2020-07-01 21:39 | ECG_ITS ---
Measurements Intervals [place] Rate: 71 P: 47 PA: 180 QRS: 264 QRSD: 108 T: 18 QT: 401 QTc: 436 Interpretive Statements SINUS RHYTHM POSSIBLE LEFT ATRIAL ENLARGEMENT INCOMPLETE RIGHT BUNDLE BRANCH BLOCK POOR R WAVE PROGRESSION, ANTERIOR LEADS BORDERLINE T WAVE ABNORMALITY- ANTERIOR LEADS BASELINE ARTIFACT- II, III BORDERLINE ECG Electronically Signed On 07-02-2020 6:11:33 CDT by Mundo Acuna D.O.
[2020-07-01 22:01] LABS: Basophils Absolute Auto 0.1 K/mm3 (0.0-0.1); Basophils Percent Auto 0.9 % (0.2-1.2); Eosinophils Absolute Auto 0.6 K/mm3 (0-0.3); Eosinophils Percent Auto 6.2 % (0-4.4); Immature Granulocyte Absolute 0.03 K/mm3 (0.00-0.031); Immature Granulocyte Percent A 0.3 % (0-0.5); Lymphocytes Absolute Auto 2.86 K/mm3 (0.9-3.2); Lymphocytes Percent Auto 29.5 % (18.3-44.2); Mean Corpuscular HGB Conc 33.3 g/dl (32-36); Mean Corpuscular Hemoglobin 29.6 pg (26-34); Mean Corpuscular Volume 88.8 fl (80-100); Mean Platelet Volume 10.4 fl (7.4-10.4); Monocytes Absolute Auto 0.8 K/mm3 (0.1-0.6); Monocytes Percent Auto 8.1 % (2.6-8.5); Neutrophils Absolute Auto 5.3 K/mm3 (1.3-6.7); Platelet Count Result 221 k/mm3 (150-375); Red Blood Count 4.73 M/mm3 (4.2-5.4); Red Cell Distribution Width 13.1 % (11.5-14.5); White Blood Count 9.7 K/mm3 (4.5-10.0)
[2020-07-01 22:11] LABS: Prothrombin Time 13.4 Seconds (11.1-14.7)
[2020-07-01 22:12] LABS: Partial Thromboplastin Time 30.4 SECONDS (22.3-36.8)
[2020-07-01 22:13] LABS: Anion Gap 6 mmol/L (8-16); Blood Urea Nitrogen 7 mg/dL (7-17); Calcium 9.4 mg/dL (8.4-10.2); Carbon Dioxide 27 mmol/L (22-30); Chloride 108 mmol/L (98-107); Estimated CRCL calculation 99 ml/min; Estimated Glomerular Filt Rate > 60; Glucose 93 mg/dL (65-105); Potassium 3.5 mmol/L (3.4-5.0); Sodium 141 mmol/L (137-145)
[2020-07-01 22:25] LABS: Troponin I < 0.012 ng/mL (0.000-0.034)
--- NOTE | 2020-07-01 22:25 | ED.NEUROSD ---
HPI - Neuro Symptoms/Deficit General Chief Complaint: Neuro Symptoms/Deficit Stated Complaint: numbness/tingling Time Seen by Provider: 07/01/20 22:07 History of Present Illness HPI Narrative: 39 yo female w/ h/o htn, migraine presents to the ED for weakness. About 1530 today she began to experience numbness and heaviness on the right side of her face and body. She also noted some change in the sound of her voice, which she ascribes to tongue numbness. She feels that her symptoms have progressed mildly since that time. She also has a moderate headache. She has frequent migraines, but never these symptoms, and she feels that this is a different type of headache. Related Data Allergies Allergy/AdvReac Type Severity Reaction Status Date / Time Penicillins Allergy Severe RASH, Verified 07/02/20 00:56 ANAPHALAXIS strawberry Allergy Severe Anaphylactic Verified 07/02/20 00:56 Shock erythromycin base Allergy Mild Rash Verified 07/02/20 00:56 codeine AdvReac Intermediate VOMITING, Verified 07/02/20 00:56 RASH morphine AdvReac Intermediate VOMITING, Verified 07/02/20 00:56 RASH Review of Systems Review of Systems: All systems reviewed & are unremarkable except as noted in HPI and below Constitutional: Constitutional: Denies chills and Denies fever(s) ENT: Denies dizziness Cardiovascular: Cardiovascular: Denies chest pain Respiratory: Respiratory: Denies dyspnea Gastrointestinal: Gastrointestinal: Denies nausea and Denies vomiting Neurologic: Reports as per HPI PMF Past Medical History Medical History Bleeding internal hemorrhoids Encounter for follow-up of acute deep vein thrombosis (DVT) of right lower extremity Essential hypertension H/O long-term (current) use of anticoagulants History of blood clots clots in the leg and lung History of pulmonary embolus (PE) HTN (hypertension) Moderate episode of recurrent major depressive disorder Obesity PE (pulmonary thromboembolism) Thrombosed external hemorrhoid Tobacco abuse Surgical History Surgical History H/O: hysterectomy Family History Family History Father No problems noted. Mother No problems noted. Sibling No problems noted. 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 Gender identity (if verbalized by the patient): Female Spiritual care concerns: No Exam Const: General: healthy appearing, no acute distress and alert Orientation/consciousness: patient oriented x3 HENMT: Head: normal to inspection Eyes: Pupils: Equal, round and reactive pupils present EOM: EOMs intact bilaterally Resp: Effort & Inspection: normal respiratory effort Auscultation: clear to auscultation bilaterally Cardio: Rate: regular rate Rhythm: regular rhythm GI: GI Palp: Yes Soft to palpation and No Tenderness to palpation present (GI) Skin: General skin exam: normal color Neuro: General: patient oriented x3 and CN's II-XI intact bilaterally Cranial nerves: Yes CN's II-XII intact bilaterally, Yes Facial sensation intact/muscles of mastication intact, Yes Equal, round and reactive pupils present, Yes Normal facial strength present, Yes facial symmetry
[2020-07-01] MEDS: METOCLOPRAMIDE HCL INJ 10 MG/2 ML VIAL IV PUSH (22:43)
[2020-07-01] MEDS: SODIUM CHLORIDE 0.9% IV 1,000 ML 999 ML IV CONT (22:43)
[2020-07-01] MEDS: ACETAMINOPHEN 500 MG TABLET 1000 MG PO (22:43)
[2020-07-01 23:49] VITALS: BP 116/74; PULSE 70; RESP 18; O2SAT 96
[2020-07-02] MEDS: ASPIRIN 81 MG CHEWABLE TABLET 324 MG PO (00:22)
--- NOTE | 2020-07-02 00:41 | PC.NURSE ---
This patient, Donavan Matos, was admitted to [facility] Surg Room 300-01 @00:42. Report taken from Riana MATA. Patient/family oriented to hospital policies and general routines including ID bracelet, bed and alarms, visiting hours, pain management, procedures, bathroom and other care routines, personal items, smoking policy, room service/diet, and visiting hours. Information on how to activate the Rapid Response Team has been discussed. Patient/Family are encouraged to report perceived risks to care and to ask questions if they do not understand what they are told or what they should do.
[2020-07-02 00:44] VITALS: BMI 29.5
--- NOTE | 2020-07-02 00:53 | PM.IMHP ---
H&P: HPI History of Present Illness Date/Time: 07/02/20 00:53 Chief Complaint: HEADACHE Narrative: This is a 39-year-old female with past medical history significant for headaches not well controlled, tobacco dependence. Patient presented to the emergency room after she was driving home from work when she felt sudden onset of right-sided numbness from head to toe and had biliary vision of the right eye as well with headache in the occipital area patient states that she has never had a headache like these when prior episodes. She has been in her usual state of health she denies any nausea vomiting fevers rigors chills cough sputum production chest pain palpitation disease near syncope or syncope no leg swelling no weight loss or weight gain no polydipsia polyphagia or polyuria. Preliminary workup was essentially non revealing. Review of Systems Review of Systems: Narrative: Patient presented to the emergency room due to numbness of the right hemibody with blurry vision of the right side on and occipital headache Constitutional: Constitutional: Denies chills, Denies fatigue, Denies fever(s) and Denies weakness Eyes: Eyes: Reports blurry vision (Right eye) ENT: Denies vertigo, Denies dizziness, Denies ear discharge, Denies facial pain, Reports headache(s), Denies nasal congestion, Denies nasal discharge, Denies nasal obstruction and Denies disequilibrium Cardiovascular: Cardiovascular: Denies edema, Denies irregular heart rhythm, Denies leg edema, Denies lightheadedness, Denies palpitations, Denies dyspnea on exertion and Denies orthopnea Respiratory: Respiratory: Denies chest congestion, Denies cough, Denies dyspnea and Denies wheezing Gastrointestinal: Gastrointestinal: Denies abdominal pain, Denies heartburn, Denies nausea and Denies vomiting Genitourinary: Genitourinary: Denies dysuria Musculoskeletal: Musculoskeletal: Denies deformity, Denies arthralgias and Denies joint swelling Integumentary/Breasts: Skin/Breast: Denies rash Neurologic: Denies focal weakness and Reports tingling Psychiatric: Psychiatric: Reports anxiety Endocrine: Endocrine: Denies no additional endocrine complaints Hematologic/Lymphatic: Hematologic/Lymphatic: Denies no additional hematologic/lymphatic complaints Allergic/Immunologic: Allergic/Immunologic: Denies no additional allergic/immunologic complaints PMFSH Past Medical History Medical History Bleeding internal hemorrhoids Encounter for follow-up of acute deep vein thrombosis (DVT) of right lower extremity Essential hypertension H/O long-term (current) use of anticoagulants History of blood clots clots in the leg and lung History of pulmonary embolus (PE) HTN (hypertension) Moderate episode of recurrent major depressive disorder Obesity PE (pulmonary thromboembolism) Thrombosed external hemorrhoid Tobacco abuse Surgical History Surgical History H/O: hysterectomy Family History Family History Father No problems noted. Mother No problems noted. Sibling No problems noted. Other Family history of allergic disorder Family history of cardiovascular disease Family history of malignant neoplasm Hypertension Social History Social History (Updated 05/27/20 @ 15:42 by Camila Saudners) Smoking packs per day: 0.25 Smoking cigarettes per day: 5.0 Years smoked: 20 Smoking pack-years: 5.00 Smoking status: Current every day smoker Tobacco type: cigarettes Second hand tobacco smoke exposure: No Additional smoking assessment comments: QUIT 05/2018 Began again 05/2019 Alcohol intake: never Substance use: never Substance use type: does not use Additional occupation/education comments: [employer]. Gender identity (if verbalized by the patient): Female Spiritual care concerns: No Meds Michelle
[2020-07-02 02:15] VITALS: O2SAT 98
[2020-07-02 04:00] VITALS: PULSE 73
[2020-07-02 06:00] VITALS: BP 104/70; PULSE 65; RESP 18; TEMP 36.7; O2SAT 96
[2020-07-02 08:00] VITALS: PULSE 71
[2020-07-02] MEDS: TOPIRAMATE 25 MG TABLET PO (09:18)
[2020-07-02] MEDS: NIFEdipine 30 MG TAB.ER.24 60 MG PO (09:18)
[2020-07-02] MEDS: SERTRALINE HCL 50 MG TABLET 100 MG PO (09:18)
[2020-07-02] MEDS: FOLIC ACID 0.4 MG TABLET PO (09:18)
[2020-07-02] MEDS: ASPIRIN 81 MG ENTERIC TABLET PO (09:19)
--- NOTE | 2020-07-02 09:50 | WPDNEURCNPN ---
Assessment and Plan Assessment and plan (1) Anxiety: Code(s): F41.9 - Anxiety disorder, unspecified Status: Acute (2) Right sided weakness: Code(s): R53.1 - Weakness Status: Acute Additional Plan complaints of severe headache with normal neurological examination, negative CTA particularly there is no evidence of aneurysm , and MRI of the brain is normal, normal neurological examination at this stage only p.r.n. medications are recommended with the monitoring of the frequency of the headaches. And follow-up in the office Consult date: 07/02/20 Time Seen: 09:00 HPI: Donavan Matos is a 39 year old female admitted to the hospital for the complaints of severe headaches in addition to the ongoing history of tobacco dependence. Patient initially presented to the emergency room after she was driving home from work when she felt sudden onset of right-sided numbness from head to toe along with visual difficulties in the right eye and headaches located in the occipital area he complained of no other problems but reported she has never had such headaches in the past also she had no history of associated generalized symptomatology in the past she has ongoing history of acute deep vein thrombosis in the right lower extremity, hypertension long-term current use of anticoagulants, history of pulmonary embolus, and history of recurrent episodes of major depressive disorder, evaluation up until now includes the normal MRI of the brain in addition to normal CTA of the brain and initially negative CT scan of the head Review of Systems Review of Systems: All systems reviewed & are unremarkable except as noted in HPI and below PMFSH Past Medical History Medical History Bleeding internal hemorrhoids Encounter for follow-up of acute deep vein thrombosis (DVT) of right lower extremity Essential hypertension H/O long-term (current) use of anticoagulants History of blood clots clots in the leg and lung History of pulmonary embolus (PE) HTN (hypertension) Moderate episode of recurrent major depressive disorder Obesity PE (pulmonary thromboembolism) Thrombosed external hemorrhoid Tobacco abuse Surgical History Surgical History H/O: hysterectomy Family History Family History Father No problems noted. Mother No problems noted. Sibling No problems noted. Other Family history of allergic disorder Family history of cardiovascular disease Family history of malignant neoplasm Hypertension Social History Social History Smoking packs per day: 0.25 Smoking cigarettes per day: 5.0 Years smoked: 20 Smoking pack-years: 5.00 Smoking status: Current every day smoker Tobacco type: cigarettes Second hand tobacco smoke exposure: No Additional smoking assessment comments: QUIT 05/2018 Began again 05/2019 Alcohol intake: never Substance use: never Substance use type: does not use Additional occupation/education comments: [employer]. Gender identity (if verbalized by the patient): Female Spiritual care concerns: No Meds Home Medications and Allergies Home Medications Medication Instructions Recorded Confirmed Type aspirin 81 mg tablet,delayed 81 mg PO DAILY #90 tablet 02/20/20 07/02/20 Rx release folic acid 400 mcg tablet 0.4 mg PO DAILY #90 tablet 02/20/20 07/02/20 Rx nifedipine 60 mg tablet,extended 60 mg PO DAILY #90 tablet 02/20/20 07/02/20 Rx release sertraline 100 mg tablet 100 mg PO DAILY #90 tablet 02/20/20 07/02/20 Rx alprazolam 0.5 mg tablet 0.5 mg PO DAILY PRN #30 tablet 06/17/20 07/02/20 Rx topiramate 25 mg tablet 25 mg PO BID #60 tablet 06/17/20 07/02/20 Rx Allergies Allergy/AdvReac Type Severity Reaction Status Date / Time Penicillins Allergy Severe
[2020-07-02] MEDS: PANTOPRAZOLE 40 MG TABLET PO (11:08)
[2020-07-02] MEDS: ENOXAPARIN 40 MG/0.4 ML SYRINGE SUB-Q (11:08)
[2020-07-02] MEDS: ACETAMINOPHEN 500 MG TABLET 1000 MG PO (11:52)
[2020-07-02 12:00] VITALS: PULSE 72
[2020-07-02 14:00] VITALS: BP 117/79; PULSE 74; RESP 16; TEMP 36.1; O2SAT 97
--- NOTE | 2020-07-02 14:38 | PM.DS ---
DS: Admitting Diagnosis Admitting Diagnosis Admitting Diagnosis: Paresthesias DS: Discharge Diagnosis Discharge Diagnosis (1) Paresthesia: Code(s): R20.2 - Paresthesia of skin Status: Acute (2) Right sided weakness: Code(s): R53.1 - Weakness Status: Acute (3) Persistent headaches: Code(s): R51.9 - Headache, unspecified Status: Acute (4) Tobacco abuse: Code(s): Z72.0 - Tobacco use Status: Acute (5) Anxiety: Code(s): F41.9 - Anxiety disorder, unspecified Status: Acute (6) HTN (hypertension): Code(s): I10 - Essential (primary) hypertension Status: Acute DS: Summary Hospital Course Reason for hospitalization: Patient is a 39-year-old woman with a history of migraines, anxiety, who presents emergency room with numbness and tingling to the right side of her face, then developed right eye blurry vision, numbness, tingling, weakness to her right arm and leg prior to arrival. Patient denies any similar symptoms before. Initial vitals showed afebrile, heart rate 74, respiratory rate 14, blood pressure 145/88, oxygenation 100% on room air. CBC with differential normal, normal coag panel, BMP normal, troponin normal. Chest x-ray shows no acute cardiopulmonary disease. CT head showed no acute intracranial abnormality. CTA head and neck showed No significant abnormality of the arteries of the head or neck. No significant stenosis, occlusion, dissection or aneurysm. MRI showed Normal brain. Neurology was consulted, Dr. May, who evaluated the patient and reviewed her images and felt that her symptoms were related to starting Topamax recently. The patient was told to stop taking Topamax and her symptoms should improve over the next few days. Follow-up with her primary care provider Dr. Javier, whom I also called to inform him of her hospitalization. I informed the patient we have ruled out any acute stroke, aneurysm or other cause to her symptoms. Keep taking Tylenol and [id number] medications for her breakthrough headaches. Return to the emergency room with new or worsening neurologic symptoms for further evaluation. The patient does feel comfortable with going home at this time to stop taking her Topamax and follow-up with her primary care provider and neurologist as an outpatient. The patient understands and agrees the plan all questions answered. Hospital Course: See above Status at Discharge Cognitive/behavioral status at discharge: Stable, improved. Time Spent with Patient Time attestation: Total time spent providing and/or coordinating discharge services: 41 Time spent: Greater than 30 minutes Exam Narrative: Exam Narrative: General: 39-year-old woman sitting up in bed talking to her . Appears comfortable. In no acute distress. Skin: No jaundice or cyanosis. Good skin turgor. Neck: Full range of motion. Supple. No midline cervical or paraspinal tenderness. Respiratory: Lungs are clear to auscultation bilaterally. No wheezing, rales or rhonchi. No bony chest wall tenderness. Cardiovascular: The heart has a regular rate and rhythm without murmur. Lower extremities: No lower extremity edema. Distal pulses are easily palpated. No calf tenderness to palpation. Gastrointestinal: The abdomen is soft, nontender and nondistended with active bowel sounds. Psychiatric: Lucid and oriented. Memory intact. Neurologic: PERRLA. EOMI. Normal Strength to extremities 5/5, Sensation intact. Good Radial and DP pulses bilaterally. Normal Pronator Drift, Normal Finger to Nose. Normal Heel to Toe. Full range of motion of all extremities. CN II-VII grossly intact. No focal deficits. Speech is clear. No facial drooping. DS: Data Data Completed and Pending Labs on day of discharge: Labs from last 24 hours 07/01/20 07/01/20 07/01/20 21:55 21:55 21:55 WBC 9.7 RBC 4.73 Hgb 14.0 Hct 42.
== END 2020-07-02 15:45 | disposition home or self-care (01) ==
LOC: ANHED 22:07 → ANH3MEDSUR 07-02 00:55
PROVIDERS: Emergency Medicine; Admitting Provider Internal Medicine; Emergency Provider Emergency Medicine; PCP Family Medicine; Visit Provider Physician Assistant
DX: R20.2 Paresthesia of skin (principal); R53.1 Weakness; R51.9 Headache, unspecified; F41.9 Anxiety disorder, unspecified; I10 Essential (primary) hypertension; F33.1 Major depressive disorder, recurrent, moderate; F17.210 Nicotine dependence, cigarettes, uncomplicated; Z86.718 Personal history of other venous thrombosis and embolism; Z86.711 Personal history of pulmonary embolism
CPT/HCPCS: 11720; 36415; 70450; 70496; 70498; 70553; 71045; 80048; 81025; 84484; 85025; 85610; 85730; 93005; 96361; 96372; 96374; 99285; A9270; A9577; G0378; J1650; J2765; J7030; Q9967

== ENCOUNTER 2020-10-26 12:36 | Outpatient (CLI) | payer OTHER, BC, SELFPAY ==
--- NOTE | ~2020-10-26 | MR_ITS ---
EXAMINATION: MR brain IAC wo con DATE: 10/26/2020 13:37 INDICATION: Headache, unspecified. TECHNIQUE: Magnetic resonance imaging (MRI) of the brain, brainstem, and internal auditory canals was performed without intravenous contrast. Sequences included sagittal and axial T1-weighted FSE, axial diffusion-weighted FS EPI, axial T2*-weighted GRE, axial T2-weighted FLAIR Propeller, axial T2-weigh janki Propeller, small qhfgo-dv-zhws coronal FIESTA, small duvxr-bd-idya coronal T1-weighted FSE, and s mall xstmo-rz-nilq axial T1-weighted SPGR. Apparent diffusion coefficient (ADC) maps were created. COMPARISON: Brain MRI 07/02/2020, head CT 07/01/2020 FINDINGS: There is no intracranial hemorrhage, acute infarction, or abnormal intracranial mass lesion . The ventricles are normal in size. The internal auditory canals and inner and middle ears are geraldine l. The mastoid air cells are normal. The paranasal sinuses are clear. The orbits are normal. IMPRESSION: 1. Normal brain. Reviewed, dictated and finalized at location A. IMPRESSION: 1. Normal brain.
== END 2020-10-26 12:37 | disposition home or self-care (01) ==
PROVIDERS: PCP Family Medicine; Visit Provider Psychiatry & Neurology Neurology
DX: R51.9 Headache, unspecified (principal)
CPT/HCPCS: 70551

== ENCOUNTER 2020-10-28 08:01 | Outpatient (CLI) | payer OTHER, BC, SELFPAY ==
[2020-10-24 13:09] VITALS: BMI 29.9
[2020-10-28] VITALS (10 sets, daily range): BP systolic 118–146; BP diastolic 81–100; PULSE 64–74; RESP 14–18; O2SAT 96–100
--- NOTE | ~2020-10-28 | XR_ITS ---
EXAMINATION: XR lumbar puncture diagnostic DATE: 10/28/2020 11:35 INDICATION: Chronic headache. TECHNIQUE: The procedure including the risks, benefits, and alternatives was discussed with the patie nt. Risks discussed included spinal headache, cerebrospinal fluid leak, bleeding, and infection. The patient understood the risks and agreed to proceed. A timeout was performed to verify the patient' s name, date of , and procedure to be performed. The skin overlying the L2-L3 level was prepped and draped in usual sterile fashion. Subcutaneous 1% lidocaine was used for local anesthesia. A 20 gauge spinal needle was advanced under fluoroscopic guidance. The needle was removed and the entry s ite was cleaned and dressed. There were no immediate complications. Fluoroscopy exposure time was 0. 1 minutes. The total number of images was 1. FINDINGS: Real-time fluoroscopy demonstrates the needle at the L2-L3 level. The opening pressure was 21 cm water (Normal range is variably defined as 6-20 cm water and up to 25 cm water in obese patient s. Pressure >25 cm water is one of the modified Dandy criteria for idiopathic intracranial hypertensi on). 15 mL of clear, colorless fluid was collected in 4 tubes. IMPRESSION: 1. Successful fluoro-guided lumbar puncture. Reviewed, dictated and finalized at location A.
[2020-10-28 09:30] LABS: Mean Platelet Volume 10.6 fl (7.4-10.4); Platelet Count Result 202 k/mm3 (150-375)
[2020-10-28 10:18] LABS: INR 0.9; Prothrombin Time 12.2 Seconds (11.1-14.7)
[2020-10-28 12:06] LABS: Glucose CSF 57 mg/dL (40-70); Total Protein CSF 71 mg/dL (12-60)
[2020-10-28] MEDS: IBUPROFEN 400 MG TABLET 800 MG PO (12:18)
[2020-10-28 12:27] LABS: Appearance CSF Clear (Clear); CSF source CSF
[2020-10-28 12:28] LABS: Color CSF Colorless (Colorless); Nucleated Cell CSF 37 /uL (0-5); Red Blood Cell CSF 11 (0-2)
[2020-10-28 12:31] LABS: Lymphocytes CSF 91 % (40-80); Monocytes CSF 7 % (15-45)
[2020-10-28 12:32] LABS: Neutrophils CSF 2 % (0-6)
--- NOTE | 2020-10-28 13:07 | SUR.PHASEII ---
DR. Conner called and informed of CSF results and he said he wanted the culture. lab called and informed that MD wants the culture. The laborer tin can said she would order the culture.
[2020-11-03 13:27] LABS: Albumin, CSF 38.3 mg/dL (8.0-42.0); IgG Index, CSF 0.85 (<0.66); IgG, CSF 10.4 mg/dL (0.8-7.7); Immunoglobulin G, Serum 1280 mg/dL (600-1640); Myelin Basic Protein, CSF <2.0 mcg/L (2.0-4.0)
[2020-11-04 20:33] LABS: Angiotensi Converting Enzy CSF 5 U/L (<=15)
== END 2020-10-28 13:30 | disposition home or self-care (01) ==
PROVIDERS: Radiology Diagnostic Radiology; PCP Family Medicine; Visit Provider Psychiatry & Neurology Neurology
DX: R51.9 Headache, unspecified (principal)
CPT/HCPCS: 36415; 62328; 82040; 82042; 82164; 82784; 82945; 83873; 83916; 84157; 85049; 85060; 85610; 87070; 89051; A9270

== ENCOUNTER 2020-10-30 08:46 | Emergency (ER) | payer OTHER, BC, SELFPAY ==
[2020-10-30] VITALS (7 sets, daily range): BP systolic 127–149; BP diastolic 87–98; PULSE 64–90; RESP 14–18; TEMP 36.2; O2SAT 95–100
--- NOTE | ~2020-10-30 | XR_ITS ---
EXAMINATION: XR injection blood patch w img DATE: 10/30/2020 12:39 INDICATION: Headache after lumbar puncture. TECHNIQUE: The procedure including the risks, benefits, and alternatives was discussed with the patie nt. Risks discussed included spinal headache, cerebrospinal fluid leak, bleeding, and infection. The patient understood the risks and agreed to proceed. A timeout was performed to verify the patient' s name, date of , and procedure to be performed. The skin overlying the L2-L3 level was prepped and draped in usual sterile fashion. Subcutaneous 1% lidocaine was used for local anesthesia. An 1 8 gauge epidural needle was advanced under fluoroscopic guidance and with jbhj-vq-htygprgxmb techniqu e. 7 mL of blood was taken from the patient's IV and injected into the epidural space. The needle was removed and the entry site was cleaned and dressed. There were no immediate complications. Fluorosc opy exposure time was 0.0 minutes. The total number of images was 2. FINDINGS: Real-time fluoroscopy demonstrates the needle at the L2-L3 level. IMPRESSION: 1. Successful fluoro-guided blood patch. Reviewed, dictated and finalized at location A.
--- NOTE | 2020-10-30 10:24 | ED.GENADULT ---
HPI - General Adult General Chief complaint: Headache <LOGAN Robert Last Filed: 10/30/20 14:36> Stated complaint: SIMS <LOGAN Robert Last Filed: 10/30/20 14:36> Time Seen by Provider: 10/30/20 09:15 <LOGAN Robert Last Filed: 10/30/20 14:36> Source: patient, family and RN notes reviewed <LOGAN Robert Last Filed: 10/30/20 14:36> Mode of arrival: ambulatory <LOGAN Robert Last Filed: 10/30/20 14:36> Limitations: no limitations <LOGAN Robert Last Filed: 10/30/20 14:36> History of Present Illness HPI narrative: Patient is a 39-year-old female who presents to emergency department with spinal headache noting that since having LP performed at [facility] on Wednesday she has had pain up the spine to the neck and into the head she had the LP for evaluation of optic neuritis and headaches that she has been experiencing of late she is under the care of primary care and neurology for this. On arrival she is nondistressed appears uncomfortable denies fever chills night sweats. Patient notes she has had nausea and vomiting with a headache. Denies injury or trauma <LOGAN Robert Last Filed: 10/30/20 14:36> Related Data Allergies/adverse reactions: Allergies Allergy/AdvReac Type Severity Reaction Status Date / Time Penicillins Allergy Severe RASH, Verified 10/30/20 09:04 ANAPHALAXIS strawberry Allergy Severe Anaphylactic Verified 10/30/20 09:04 Shock codeine Allergy Intermediate VOMITING, Verified 10/30/20 09:04 RASH morphine Allergy Intermediate VOMITING, Verified 10/30/20 09:04 RASH erythromycin base Allergy Mild Rash Verified 10/30/20 09:04 topiramate [From Topamax] Allergy Other Verified 10/30/20 09:04 <LOGAN Robert Last Filed: 10/30/20 14:36> Review of Systems Review of Systems: All systems reviewed & are unremarkable except as noted in HPI and below <LOGAN Robert Last Filed: 10/30/20 14:36> PMFSH Past Medical History Medical History: Medical History Bleeding internal hemorrhoids BMI 29.0-29.9,adult Encounter for follow-up of acute deep vein thrombosis (DVT) of right lower extremity Essential hypertension H/O long-term (current) use of anticoagulants History of blood clots clots in the leg and lung History of pulmonary embolus (PE) HTN (hypertension) Moderate episode of recurrent major depressive disorder Obesity PE (pulmonary thromboembolism) Thrombosed external hemorrhoid Tobacco abuse <Dustin Tovar PA-C - Last Filed: 10/30/20 14:36> Surgical History Surgical History: Surgical History H/O: hysterectomy <Dustin Tovar PA-C - Last Filed: 10/30/20 14:36> Family History Family History: Family History Father No problems noted. Mother No problems noted. Sibling No problems noted. Other Family history of allergic disorder Family history of cardiovascular disease Family history of malignant neoplasm Hypertension <Dustin Tovar PA-C - Last Filed: 10/30/20 14:36> Social History Social History: Social History Smoking packs per day: 0.25 Smoking cigarettes per day: 5.0 Years smoked: 20 Smoking pack-years: 5.00 Smoking status: Current every day smoker Tobacco type: cigarettes Second hand tobacco smoke exposure: No Additional smoking assessment comments: QUIT 05/2018 Began again 05/2019 Alcohol intake: current Alcohol use details: socially Substance use: never Substance use type: does not use Additional occupation/education comments: [employer]. Gender identity (if verbalized by the patient): Female Spiritual care concerns: No <Dustin
[2020-10-30] MEDS: SODIUM CHLORIDE 0.9% IV 1,000 ML 999 ML IV CONT (10:27)
[2020-10-30] MEDS: KETOROLAC 30 MG/ML VIAL (*BKC) IV PUSH (10:27)
[2020-10-30] MEDS: ONDANSETRON INJ 4 MG/2 ML VIAL IV PUSH (10:27)
[2020-10-30] MEDS: LORazepam INJ (*CRX) 2 MG/ML VIAL 1 MG IV PUSH (10:33)
[2020-10-30] MEDS: DEXAMETHASONE SOD PHOS INJ 4 MG/ML VIAL 10 MG IV PUSH (10:33)
[2020-10-30] MEDS: CAFFEINE 200 MG TABLET PO (10:39)
--- NOTE | 2020-10-30 14:50 | PC.NURSE ---
aundrea ramos in room speaking with pt regarding lp results and neurologist's plan
== END 2020-10-30 15:20 | disposition home or self-care (01) ==
PROVIDERS: Emergency Provider General Practice; PCP Family Medicine
DX: G97.1 Other reaction to spinal and lumbar puncture (principal); I10 Essential (primary) hypertension; F33.9 Major depressive disorder, recurrent, unspecified; Z86.711 Personal history of pulmonary embolism; Z79.01 Long term (current) use of anticoagulants; E66.9 Obesity, unspecified; Z68.31 Body mass index [BMI] 31.0-31.9, adult; F17.210 Nicotine dependence, cigarettes, uncomplicated
CPT/HCPCS: 62273; 77003; 96361; 96374; 96375; 99284; A9270; J0131; J1100; J1885; J2060; J2405; J7030

== ENCOUNTER 2020-11-08 06:43 | Outpatient (CLI) | payer OTHER, BC, SELFPAY ==
--- NOTE | ~2020-11-08 | MR_ITS ---
EXAMINATION: MR thoracic spine wo/w con EXAM DATE: 11/08/2020 08:50 INDICATION: G35 - Multiple sclerosis. TECHNIQUE: Multi-sequential, multiplanar MR images of the thoracic spine were obtained without contra st. Sagittal T1, T2, T2 fat saturation, axial T2 weighted images reviewed. Axial T1 weighted sequenc e. Patient was then injected with 17 mL Multihance intravenous contrast and reimaged. Postcontrast axial and sagittal T1-weighted fat saturation sequences were obtained. Correlation was made with CT a bdomen pelvis 09/02/2019. FINDINGS: There is a 1.5 cm signal abnormality central aspect of the T10 vertebral body with differen tial diagnosis including atypical hemangioma and metastatic disease or multiple myeloma. Correlating with a CT scan from last year, T10 vertebral body was imaged on that study and no lesion identified a t that time. No other marrow signal abnormalities. This may demonstrate very faint enhancement, which does not change the differential diagnosis. Otherwise no areas of abnormal enhancement. The spinal cord signal intensity and intrinsic morphology is normal. Thoracic central canal and neura l foramen are widely patent. Paraspinal soft tissue is unremarkable. There is mild thoracic facet art hropathy. Some layering gallbladder debris or small gallstones. IMPRESSION: 1. Incidental T10 signal abnormality, would favor atypical hemangioma over metastatic disease or mye charu but no evidence of a lesion on CT scan last year. Consider follow-up CT thoracic spine without c ontrast for more direct comparison to the CT last year, determine any change. 2. Normal thoracic cord signal. Reviewed, dictated and finalized at location A. IMPRESSION: 1. Incidental T10 signal abnormality, would favor atypical hemangioma over met astatic disease or myeloma but no evidence of a lesion on CT scan last year. Co nsider follow-up CT thoracic spine without contrast for more direct comparison to the CT last year, determine any change. 2. Normal thoracic cord signal.
--- NOTE | ~2020-11-08 | MR_ITS ---
EXAMINATION: MR cervical spine wo/w con EXAM DATE: 11/08/2020 08:49 INDICATION: G35 - Multiple sclerosis. TECHNIQUE: Multi-sequential, multiplanar MR images of the cervical spine were obtained without contra st. Axial T2, axial T2 MERGE sequence. Sagittal T1, T2, T2 fat saturation images also obtained. Axi al T1 weighted sequence. Patient was then injected with 17 mL Multihance intravenous contrast and re imaged. Postcontrast axial and sagittal T1-weighted fat saturation sequences were obtained. There i s no prior study for comparison. FINDINGS: The vertebral bodies are aligned in the AP dimension. Vertebral body and disc heights are well-maintained. The spinal cord signal intensity and intrinsic morphology is normal. Cervicomedullar y junction is normal in appearance. There are no suspicious marrow signal abnormalities. Paraspinal s oft tissue is unremarkable. Asymmetric fatty involution of the left parotid gland. There are no are as of abnormal enhancement on the post contrast images. Level by level evaluation: C2-C3: Disc does not extend beyond the endplate margin. Uncovertebral joint arthropathy: None. Facet joint arthropathy: Mild to moderate right, mild left. Neural foraminal stenosis: No stenosis. Central canal stenosis: No stenosis. C3-C4: Disc does not extend beyond the endplate margin. Uncovertebral joint arthropathy: None. Facet joint arthropathy: Mild bilateral. Neural foraminal stenosis: No stenosis. Central canal stenosis: No stenosis. C4-C5: Disc does not extend beyond the endplate margin. Uncovertebral joint arthropathy: None. Facet joint arthropathy: Mild to moderate bilateral. Neural foraminal stenosis: No stenosis. Central canal stenosis: No stenosis. C5-C6: Disc does not extend beyond the endplate margin. Uncovertebral joint arthropathy: None. Facet joint arthropathy: Mild bilateral. Neural foraminal stenosis: No stenosis. Central canal stenosis: No stenosis. C6-C7: Disc does not extend beyond the endplate margin. Uncovertebral joint arthropathy: None. Facet joint arthropathy: None. Neural foraminal stenosis: No stenosis. Central canal stenosis: No stenosis. C7-T1: Disc does not extend beyond the endplate margin. Uncovertebral joint arthropathy: None. Facet joint arthropathy: Mild to moderate right. Neural foraminal stenosis: No stenosis. Central canal stenosis: No stenosis. IMPRESSION: 1. Normal cervical spinal cord signal. 2. Mild cervical arthropathy. Reviewed, dictated and finalized at location A.
[2020-11-08 07:18] LABS: Estimated Glomerular Filt Rate > 60
== END 2020-11-08 06:44 | disposition home or self-care (01) ==
LOC: ANHIMG 06:44
PROVIDERS: PCP Family Medicine; Visit Provider Psychiatry & Neurology Neurology
DX: G35 Multiple sclerosis (principal); M12.88 Other specific arthropathies, not elsewhere classified, other specified site
CPT/HCPCS: 72156; 72157; A9577

== ENCOUNTER 2020-12-26 16:00 | Outpatient (RCR) | payer OTHER, BC, SELFPAY ==
[2020-12-26 16:16] LABS: Basophils Absolute Auto 0.1 K/mm3 (0.0-0.1); Eosinophils Absolute Auto 0.7 K/mm3 (0-0.3); Eosinophils Percent Auto 8.6 % (0-4.4); Hematocrit 39.8 % (37.0-47.0); Immature Granulocyte Absolute 0.02 K/mm3 (0.00-0.031); Immature Granulocyte Percent A 0.3 % (0-0.5); Lymphocytes Absolute Auto 2.82 K/mm3 (0.9-3.2); Lymphocytes Percent Auto 36.3 % (18.3-44.2); Mean Corpuscular HGB Conc 32.7 g/dl (32-36); Mean Corpuscular Hemoglobin 28.9 pg (26-34); Mean Corpuscular Volume 88.4 fl (80-100); Mean Platelet Volume 10.3 fl (7.4-10.4); Monocytes Absolute Auto 0.6 K/mm3 (0.1-0.6); Monocytes Percent Auto 7.6 % (2.6-8.5); Neutrophils Absolute Auto 3.6 K/mm3 (1.3-6.7); Neutrophils Percent Auto 46.2 % (45.5-73.1); Platelet Count Result 217 k/mm3 (150-375); Red Cell Distribution Width 13.5 % (11.5-14.5); White Blood Count 7.8 K/mm3 (4.5-10.0)
[2020-12-26 16:20] LABS: Blood Urea Nitrogen 12 mg/dL (8-26); Carbon Dioxide 23 mmol/L (22-30); Chloride 106 mmol/L (98-109); Estimated Glomerular Filt Rate > 60; Glucose 99 mg/dL (70-105); Potassium 3.4 mmol/L (3.5-4.9); Sodium 143 mmol/L (138-146)
[2020-12-26 16:43] LABS: Alanine Aminotransferase 12 U/L (4-35); Albumin Level 4.8 g/dL (3.5-5.1); Alkaline Phosphatase 82 U/L (38-126); Anion Gap 11 mmol/L (8-16); Aspartate Amino Transferase 22 U/L (14-36); Bilirubin,Total 0.1 mg/dL (0.2-1.3); Blood Urea Nitrogen 12 mg/dL (7-17); Calcium 9.3 mg/dL (8.4-10.2); Carbon Dioxide 22 mmol/L (22-30); Chloride 105 mmol/L (98-107); Estimated Glomerular Filt Rate > 60; Glucose 101 mg/dL (65-110); Potassium 3.5 mmol/L (3.4-5.0); Sodium 138 mmol/L (137-145)
== END 2021-03-26 23:59 | disposition home or self-care (01) ==
LOC: ANHLAB 16:00
PROVIDERS: PCP Family Medicine; Visit Provider Internal Medicine Hematology & Oncology
DX: I82.5Z2 Chronic embolism and thrombosis of unspecified deep veins of left distal lower extremity (principal)
CPT/HCPCS: 36415; 80048; 80053; 85025

== ENCOUNTER 2021-01-30 10:22 | Outpatient (CLI) | payer OTHER, BC, SELFPAY ==
[2021-01-30 10:48] LABS: Basophils Absolute Auto 0.1 K/mm3 (0.0-0.1); Basophils Percent Auto 1.1 % (0.2-1.2); Eosinophils Absolute Auto 0.6 K/mm3 (0-0.3); Eosinophils Percent Auto 8.4 % (0-4.4); Hematocrit 40.5 % (37.0-47.0); Hemoglobin 13.2 g/dL (12.0-15.0); Immature Granulocyte Absolute 0.02 K/mm3 (0.00-0.031); Immature Granulocyte Percent A 0.3 % (0-0.5); Lymphocytes Percent Auto 27.1 % (18.3-44.2); Mean Corpuscular HGB Conc 32.6 g/dl (32-36); Mean Corpuscular Hemoglobin 28.8 pg (26-34); Mean Corpuscular Volume 88.4 fl (80-100); Mean Platelet Volume 10.6 fl (7.4-10.4); Monocytes Absolute Auto 0.6 K/mm3 (0.1-0.6); Monocytes Percent Auto 8.4 % (2.6-8.5); Neutrophils Absolute Auto 3.8 K/mm3 (1.3-6.7); Neutrophils Percent Auto 54.7 % (45.5-73.1); Platelet Count Result 208 k/mm3 (150-375); Red Blood Count 4.58 M/mm3 (4.2-5.4); Red Cell Distribution Width 14.1 % (11.5-14.5)
[2021-01-30 10:59] LABS: Alanine Aminotransferase 12 U/L (4-35); Albumin Level 4.8 g/dL (3.5-5.1); Alkaline Phosphatase 90 U/L (38-126); Anion Gap 9 mmol/L (8-16); Aspartate Amino Transferase 21 U/L (14-36); Bilirubin,Total 0.3 mg/dL (0.2-1.3); Blood Urea Nitrogen 7 mg/dL (7-17); Calcium 9.5 mg/dL (8.4-10.2); Carbon Dioxide 23 mmol/L (22-30); Chloride 106 mmol/L (98-107); Estimated Glomerular Filt Rate > 60; Glucose 96 mg/dL (65-110); Potassium 3.7 mmol/L (3.4-5.0); Sodium 138 mmol/L (137-145)
[2021-01-30 11:53] LABS: Free T4 Free Thyroxine 0.77 ng/mL (0.78-2.19)
== END 2021-01-30 10:23 | disposition home or self-care (01) ==
LOC: ANHLAB 10:25
PROVIDERS: PCP Family Medicine; Visit Provider Psychiatry & Neurology Neurology
DX: G35 Multiple sclerosis (principal)
CPT/HCPCS: 36415; 80053; 82607; 84439; 85025; 86038

== ENCOUNTER 2021-05-08 16:48 | Outpatient (CLI) | payer OTHER, BC, SELFPAY ==
--- NOTE | ~2021-05-08 | MM_ITS ---
EXAMINATION: MM screening [facility] BI w elsie HISTORY: Screening mammogram TECHNIQUE: Craniocaudal and mediolateral oblique 3-D tomosynthesis images were obtained and synthetic 2-D images were generated. CAD analysis was submitted and interpreted. COMPARISON: 04/22/2020, 12/21/2018, 12/06/2018 BREAST PARENCHYMAL COMPOSITION: The breasts are heterogeneously dense, which may obscure small masses . FINDINGS: There is no suspicious mass, calcification, or architectural distortion to suggest malignan cy in either breast. There has been no suspicious interval change. IMPRESSION: 1. No mammographic evidence of malignancy. 2. Recommend routine screening mammography in one year. BI-RADS Category 1: Negative Reviewed, dictated and finalized at location A.
== END 2021-05-08 16:49 | disposition home or self-care (01) ==
LOC: ANHIMG 16:49
PROVIDERS: PCP Family Medicine; Visit Provider Obstetrics & Gynecology
DX: Z12.31 Encounter for screening mammogram for malignant neoplasm of breast (principal)
CPT/HCPCS: 77063; 77067

== ENCOUNTER 2021-05-20 16:34 | Outpatient (CLI) | payer OTHER, BC, SELFPAY ==
--- NOTE | ~2021-05-20 | XR_ITS ---
EXAM: XR hand RT min 3V HISTORY: M79.641 -NUMBNESS,TINGLING,X1 MONTH,NO INJURY... COMPARISON: None available FINDINGS: Normal mineralization. No fracture or dislocation. No lytic or blastic lesion. Mild scatte red degenerative changes. No erosion or periosteal change. Soft tissues within normal limits. IMPRESSION: No acute osseous finding in the right hand. Reviewed, dictated and finalized at location K.
== END 2021-05-20 16:35 | disposition home or self-care (01) ==
LOC: ANHIMG 16:37
PROVIDERS: PCP Family Medicine; Visit Provider Nurse Practitioner Family
DX: M79.641 Pain in right hand (principal)
CPT/HCPCS: 73130

== ENCOUNTER 2021-06-03 07:45 | Outpatient (CLI) | payer OTHER, BC, SELFPAY ==
[2021-06-03 08:38] LABS: Anion Gap 7 mmol/L (8-16); Blood Urea Nitrogen 10 mg/dL (7-17); Calcium 9.4 mg/dL (8.4-10.2); Carbon Dioxide 29 mmol/L (22-30); Chloride 107 mmol/L (98-107); Estimated Glomerular Filt Rate > 60; Glucose 106 mg/dL (65-110); Potassium 4.2 mmol/L (3.4-5.0); Sodium 143 mmol/L (137-145)
[2021-06-03 08:40] LABS: Hemoglobin A1C 5.4 % (<5.7)
[2021-06-03 09:12] LABS: Cortisol Random 2.79 ug/dL
[2021-06-03 09:40] LABS: Add Urine Microscopic? NO; Appearance Urine Clear (Clear); Bilirubin Urine Negative (Negative); Blood Urine Negative (Negative); Color Urine Yellow (Yellow); Glucose Urine UA Negative (Negative); Ketones Urine Negative (Negative); Leukocyte Esterase Ur Negative LEU/UL (NEGATIVE); Nitrate Urine Negative (Negative); Protein Urine Negative (Negative); Specific Grav Ur 1.011 (1.001-1.035); Urobilinogen Urine Negative mg/dL (<2.0)
[2021-06-06 19:56] LABS: Osmolality, Urine 405 mOsm/kg (50-1200)
== END 2021-06-03 07:46 | disposition home or self-care (01) ==
LOC: ANHLAB 07:50
PROVIDERS: PCP Family Medicine; Visit Provider Internal Medicine Endocrinology, Diabetes & Metabolism
DX: R35.89 Other polyuria (principal); E23.6 Other disorders of pituitary gland
CPT/HCPCS: 36415; 80048; 81003; 82533; 83036; 83930; 83935; 87086

== ENCOUNTER 2021-06-25 15:40 | Outpatient (CLI) | payer OTHER, BC, SELFPAY ==
--- NOTE | ~2021-06-25 | MR_ITS ---
EXAMINATION: MR hand RT wo con DATE: 06/25/2021 16:45 INDICATION: Right hand pain, weakness, and numbness TECHNIQUE: Magnetic resonance imaging (MRI) of the right hand was performed without intravenous contr ast to include the metacarpals and digits. Sequences included sagittal, coronal, and axial proton-den sity weighted fast spin echo without and with fat saturation. COMPARISON: Right hand x-rays 05/20/2021 FINDINGS: The marrow signal is benign and homogenous. Cystic degenerative changes in the capitate. Ti ny subcortical cyst in the third metacarpal head. Mild subchondral sclerosis at the first MTP joint a nd trapeziometacarpal joint. Otherwise the marrow signal is benign and homogenous. The flexor and ext ensor tendons are intact and normal in appearance. Minimal joint fluid in the trapeziometacarpal join t and first MCP joint. The bones of the hand are normally aligned. IMPRESSION: 1. Mild degenerative changes in the capitate bone, trapeziometacarpal joint, and first MCP joint. 2. Otherwise normal MR right hand findings. Reviewed, dictated and finalized at location K. IMPRESSION: 1. Mild degenerative changes in the capitate bone, trapeziometacarpal joint, an d first MCP joint. 2. Otherwise normal MR right hand findings.
== END 2021-06-25 15:41 | disposition home or self-care (01) ==
PROVIDERS: PCP Family Medicine; Visit Provider Physician Assistant Medical
DX: M19.041 Primary osteoarthritis, right hand (principal); M18.11 Unilateral primary osteoarthritis of first carpometacarpal joint, right hand
CPT/HCPCS: 73218

== ENCOUNTER 2021-07-05 08:02 | Outpatient (CLI) | payer OTHER, BC, SELFPAY ==
[2021-07-05 09:28] LABS: Cortisol Baseline 0.93 ug/dL
== END 2021-07-05 08:03 | disposition home or self-care (01) ==
LOC: ANHLAB 08:06
PROVIDERS: PCP Family Medicine; Visit Provider Internal Medicine Endocrinology, Diabetes & Metabolism
DX: E23.6 Other disorders of pituitary gland (principal)
CPT/HCPCS: 36415; 82533

== ENCOUNTER 2021-08-29 15:34 | Outpatient (CLI) | payer OTHER, BC, SELFPAY ==
--- NOTE | ~2021-08-29 | MR_ITS ---
EXAMINATION: MR brain/brain stem wo/w con DATE: 08/29/2021 16:33 INDICATION: Pituitary mass. TECHNIQUE: Magnetic resonance imaging (MRI) of the brain and brainstem was performed without and with 20 mL MultiHance intravenous contrast. COMPARISON: Brain MRI 10/26/2020, head CT 07/01/2020 FINDINGS: The pituitary is normal in size with height of 10 mm. The infundibulum is at midline. There is no intracranial hemorrhage, acute infarction, or abnormal intracranial mass lesion. The ventricle s are normal in size. The paranasal sinuses are clear. The orbits are normal. The mastoid air cells a re normal. IMPRESSION: 1. Normal brain. Reviewed, dictated and finalized at location A. IMPRESSION: 1. Normal brain.
[2021-08-29 16:06] LABS: Estimated Glomerular Filt Rate > 60
== END 2021-08-29 15:35 | disposition home or self-care (01) ==
PROVIDERS: PCP Family Medicine
DX: D35.2 Benign neoplasm of pituitary gland (principal)
CPT/HCPCS: 70553; A9577

== ENCOUNTER 2021-09-22 13:07 | Outpatient (CLI) | payer OTHER, BC, SELFPAY ==
[2021-09-22 14:01] LABS: Erythrocyte Sedimentation Rate 27 mm/hr (0-20)
[2021-09-23 09:34] LABS: Rapid Plasma Reagin Non-Reactive (NonReactive)
[2021-09-25 08:26] LABS: NIL 0.02 IU/mL; Quantiferon TB Plus, 1T NEGATIVE (NEGATIVE)
[2021-09-25 12:28] LABS: Immunoglobulin G, Serum 993 mg/dL (600-1640); Immunoglobulin G1 479 mg/dL (382-929); Immunoglobulin G2 416 mg/dL (241-700); Immunoglobulin G3 40 mg/dL (22-178); Immunoglobulin G4 22.3 mg/dL (4.0-86.0)
[2021-09-25 21:30] LABS: CRP, High Sensitivity 3.5 mg/L (***)
[2021-09-29 00:20] LABS: Angiotensin Converting Enzyme 38 U/L (9-67)
== END 2021-09-22 13:08 | disposition home or self-care (01) ==
LOC: ANHLAB 13:12
PROVIDERS: PCP Family Medicine; Visit Provider Internal Medicine Endocrinology, Diabetes & Metabolism
DX: E23.6 Other disorders of pituitary gland (principal); E23.2 Diabetes insipidus
CPT/HCPCS: 36415; 82164; 82784; 82787; 85652; 86141; 86480; 86592

== ENCOUNTER 2021-12-04 07:37 | Outpatient (CLI) | payer OTHER, BC, SELFPAY ==
[2021-12-04 08:04] LABS: Anion Gap 10 mmol/L (8-16); Blood Urea Nitrogen 11 mg/dL (7-17); Calcium 8.9 mg/dL (8.4-10.2); Carbon Dioxide 26 mmol/L (22-30); Chloride 105 mmol/L (98-107); Estimated Glomerular Filt Rate > 60; Glucose 107 mg/dL (65-110); Potassium 4.3 mmol/L (3.4-5.0); Sodium 141 mmol/L (137-145)
== END 2021-12-04 07:38 | disposition home or self-care (01) ==
PROVIDERS: PCP Family Medicine
DX: D49.7 Neoplasm of unspecified behavior of endocrine glands and other parts of nervous system (principal)
CPT/HCPCS: 36415; 80048; 82533

== ENCOUNTER 2023-02-12 13:49 | Outpatient (CLI) | payer OTHER, BC, SELFPAY ==
--- NOTE | ~2023-02-12 | MM_ITS ---
EXAMINATION: MM screening [facility] BI w elsie HISTORY: Screening mammogram TECHNIQUE: Craniocaudal and mediolateral oblique 3-D tomosynthesis images were obtained and synthetic 2-D images were generated. CAD analysis was submitted and interpreted. COMPARISON: 05/08/2021, 04/22/2020, 12/21/2018 BREAST PARENCHYMAL COMPOSITION: The breasts are heterogeneously dense, which may obscure small masses . FINDINGS: No suspicious mass, calcification, or architectural distortion are identified in either lukasz ast to suggest malignancy. There has been no suspicious interval change. IMPRESSION: 1. No mammographic evidence of malignancy. 2. Recommend routine screening mammography in one year. BI-RADS Category 1: Negative Reviewed, dictated and finalized at location A. [employer]ING [employer]ACH[employer]
== END 2023-02-12 13:50 | disposition home or self-care (01) ==
LOC: ANHIMG 13:51
PROVIDERS: PCP Family Medicine; Visit Provider Obstetrics & Gynecology
DX: Z12.31 Encounter for screening mammogram for malignant neoplasm of breast (principal)
CPT/HCPCS: 77063; 77067

== ENCOUNTER 2023-07-02 10:30 | Outpatient (CLI) | payer OTHER, BC, SELFPAY ==
--- NOTE | ~2023-07-02 | XR_ITS ---
Lumbosacral Spine: AP, oblique, and lateral views Clinical History: Pain Findings: The normal lordotic curve is maintained. The vertebral bodies and posterior elements are i ntact. The intervertebral disc spaces are preserved. The sacroiliac joints are normally outlined. Impression: No significant abnormality. Reviewed, dictated and finalized at [facility]. Impression: No significant abnormality.
== END 2023-07-02 10:31 ==
PROVIDERS: PCP Family Medicine; Visit Provider Nurse Practitioner Family
DX: M54.50 Low back pain, unspecified (principal)
CPT/HCPCS: 72110

== ENCOUNTER 2023-09-26 01:57 | Emergency (ER) | payer OTHER, BC, SELFPAY ==
--- NOTE | ~2023-09-26 | CT_ITS ---
EXAMINATION: CT abdomen pelvis w con DATE: 09/26/2023 04:46 INDICATION: Right upper quadrant abdominal pain. TECHNIQUE: Computed tomography (CT) of the abdomen and pelvis was performed with 100 mL Omnipaque-350 intravenous contrast. Automated exposure control and iterative reconstruction technique were employe d. The dose-length product was 1132.57 mGy-cm. COMPARISON: 09/02/2019 FINDINGS: Dependent atelectasis in the bilateral lower lobes. Heart size is normal. No pericardial or pleural e ffusion. Liver, gallbladder, spleen, pancreas, bilateral adrenal glands and kidneys are normal. Bowel s including the appendix are normal. Bladder is normal. The uterus is not identified and has likely b een surgically resected. No free intraperitoneal gas or fluid. No pathologically enlarged abdominal o r pelvic lymphadenopathy. Bones are unremarkable. IMPRESSION: 1. No acute intra-abdominal/pelvic process. Reviewed, dictated and finalized at location A.
[2023-09-26] MEDS: ONDANSETRON INJ 4 MG/2 ML VIAL IV PUSH (02:28)
[2023-09-26] MEDS: KETOROLAC 15 MG/ML VIAL (*BKC) IV PUSH (02:28)
[2023-09-26] MEDS: HYDROmorphone HCL INJ (*CRX) 1 MG/ML SYR 0.5 MG IV PUSH (02:28)
[2023-09-26] MEDS: SODIUM CHLORIDE 0.9% IV 2,000 ML 999 ML IV CONT (02:29)
[2023-09-26 02:38] LABS: Basophils Absolute Auto 0.1 K/mm3 (0.0-0.1); Basophils Percent Auto 1.1 % (0.2-1.2); Eosinophils Absolute Auto 0.5 K/mm3 (0-0.3); Eosinophils Percent Auto 4.9 % (0-4.4); Hematocrit 40.5 % (37.0-47.0); Hemoglobin 13.4 g/dL (12.0-15.0); Immature Granulocyte Absolute 0.03 K/mm3 (0.00-0.031); Immature Granulocyte Percent A 0.3 % (0-0.5); Lymphocytes Absolute Auto 3.52 K/mm3 (0.9-3.2); Lymphocytes Percent Auto 34.1 % (18.3-44.2); Mean Corpuscular HGB Conc 33.1 g/dl (32-36); Mean Corpuscular Hemoglobin 29.1 pg (26-34); Mean Platelet Volume 10.1 fl (7.4-10.4); Monocytes Absolute Auto 0.8 K/mm3 (0.1-0.6); Monocytes Percent Auto 7.5 % (2.6-8.5); Neutrophils Absolute Auto 5.4 K/mm3 (1.3-6.7); Neutrophils Percent Auto 52.1 % (45.5-73.1); Platelet Count Result 256 k/mm3 (150-375); Red Cell Distribution Width 13.5 % (11.5-14.5); White Blood Count 10.3 K/mm3 (4.5-10.0)
[2023-09-26 02:40] LABS: Add Urine Microscopic? NO; Appearance Urine Clear (Clear); Bilirubin Urine Negative (Negative); Blood Urine Negative (Negative); Color Urine Yellow (Yellow); Glucose Urine UA Negative (Negative); Ketones Urine Negative (Negative); Leukocyte Esterase Ur Negative LEU/UL (Negative); Nitrate Urine Negative (Negative); Protein Urine Negative (Negative); Specific Grav Ur 1.011 (1.001-1.035); Urobilinogen Urine 0.2 mg/dL (<2.0); pH Urine 5.5 (5.0-9.0)
[2023-09-26 02:42] LABS: Alanine Aminotransferase 10 U/L (6-35); Albumin Level 4.2 g/dL (3.5-5.1); Alkaline Phosphatase 95 U/L (38-126); Anion Gap 10 mmol/L (4-12); Aspartate Amino Transferase 20 U/L (14-36); Bilirubin,Total 0.2 mg/dL (0.2-1.3); Blood Urea Nitrogen 10 mg/dL (7-17); Calcium 9.4 mg/dL (8.4-10.2); Carbon Dioxide 28 mmol/L (22-30); Chloride 103 mmol/L (98-107); Estimated CRCL calculation 91 ml/min; Estimated Glomerular Filt Rate > 60; Glucose 116 mg/dL (65-110); Lipase 32 U/L (23-300); Potassium 3.6 mmol/L (3.4-5.0); Sodium 141 mmol/L (137-145)
[2023-09-26 02:43] LABS: Lactic Acid Reflex 1.1 mmol/L (0.7-2.0)
[2023-09-26] MEDS: HYDROmorphone HCL INJ (*CRX) 1 MG/ML SYR IV PUSH (04:00)
[2023-09-26 05:27] VITALS: BP 122/74; PULSE 74; RESP 15; O2SAT 94
--- NOTE | 2023-09-26 05:29 | ED.GENADULT ---
HPI - General Adult General Chief complaint: Abdominal Pain Stated complaint: bilat upper quadrant pain radiating to right back Time Seen by Provider: 09/26/23 02:06 History of Present Illness HPI narrative: This is a 42-year-old female presenting ED with chief complaint of right upper quadrant abdominal pain. Pain started at 11:30 a.m.. He has an achy pain that radiates to her back. It is severe in intensity. It is constant. She has never had pain like this before there is no exacerbating alleviating symptoms. It is associated with nausea but no vomiting. No fevers chills chest pain difficulty breathing or urinary symptoms. Patient has never had a symptoms of biliary colic in the past. No history of kidney stones Related Data Home Medications Medication Instructions Recorded Confirmed desmopressin 0.1 mg tablet 0.1 mg PO 10/07/21 07/02/23 Allergies Allergy/AdvReac Type Severity Reaction Status Date / Time Penicillins Allergy Severe RASH, Verified 07/02/23 09:57 ANAPHALAXIS strawberry Allergy Severe Anaphylactic Verified 07/02/23 09:57 Shock codeine Allergy Intermediate VOMITING, Verified 07/02/23 09:57 RASH morphine Allergy Intermediate VOMITING, Verified 07/02/23 09:57 RASH erythromycin base Allergy Mild Rash Verified 07/02/23 09:57 topiramate [From Topamax] Allergy Other Verified 07/02/23 09:57 [facility] Past Medical History Medical History Bleeding internal hemorrhoids Encounter for follow-up of acute deep vein thrombosis (DVT) of right lower extremity Essential hypertension H/O long-term (current) use of anticoagulants H/O: pituitary tumor History of blood clots clots in the leg and lung History of pulmonary embolus (PE) HTN (hypertension) Light sensitivity Mass in region of sella turcica present on magnetic resonance imaging Moderate episode of recurrent major depressive disorder Obesity PE (pulmonary thromboembolism) Persistent headaches Thrombosed external hemorrhoid Tobacco abuse Surgical History Surgical History H/O: hysterectomy Family History Family History Father Acute complete flaccid quadriplegia Mother Skin cancer Pre-diabetes Sibling COVID-19 Other Family history of allergic disorder Family history of cardiovascular disease Family history of malignant neoplasm Hypertension Social History Social History Smoking packs per day: 0.25 Smoking cigarettes per day: 5.0 Years smoked: 20 Smoking pack-years: 5.00 Smoking status: Current every day smoker Tobacco type: cigarettes Second hand tobacco smoke exposure: No Additional smoking assessment comments: QUIT 05/2018 Began again 05/2019 Alcohol intake: current Alcohol use details: socially Substance use: never Substance use type: does not use Lack of Transportation: No Lack of Food: Never True Current Housing: I Have Housing Concerned About Future Housing: No Difficulty Paying Gas/Electric Bills: No Difficulty Paying for Meds: No Currently Unemployed: No Education: High School Diploma/GED Difficulty w/ Childcare or Family Care: No Living arrangements: with family Occupation/Education: occupation Additional occupation/education comments: [employer]. Gender identity (if verbalized by the patient): Female Spiritual care concerns: No Exam Narrative: APPEARANCE: No apparent distress. Head: atraumatic. EYES: EOMI, NOSE: Atraumatic NECK: Trachea midline RESPIRATORY: No increased rate of breathing CARDIOVASCULAR: RRR, ABDOMINAL: Tenderness palpation in the right upper quadrant. Rest the abdomen is soft nontender no guarding or rebound. No CVA tenderness. Point of care right upper quadrant ultrasound showed m
[2023-09-26 06:46] VITALS: BP 136/84; PULSE 81; RESP 16; O2SAT 99
== END 2023-09-26 06:47 | disposition home or self-care (01) ==
PROVIDERS: Emergency Provider Emergency Medicine; PCP Family Medicine
DX: K80.50 Calculus of bile duct without cholangitis or cholecystitis without obstruction (principal); I10 Essential (primary) hypertension; E66.9 Obesity, unspecified; Z68.34 Body mass index [BMI] 34.0-34.9, adult; F33.9 Major depressive disorder, recurrent, unspecified; F17.210 Nicotine dependence, cigarettes, uncomplicated; Z86.711 Personal history of pulmonary embolism; Z90.710 Acquired absence of both cervix and uterus; Z79.82 Long term (current) use of aspirin; Z79.899 Other long term (current) drug therapy
CPT/HCPCS: 36415; 74177; 80053; 81003; 83605; 83690; 85025; 96361; 96374; 96375; 96376; 99284; J1170; J1885; J2405; J7030; Q9967

== ENCOUNTER 2023-11-06 09:00 | Outpatient (CLI) | payer OTHER, BC, SELFPAY ==
[2023-11-06 09:26] LABS: Amylase 102 U/L (30-110)
--- NOTE | 2023-11-06 09:27 | ECG_ITS ---
Test Date: 2023-11-06 09:32:17 Measurements Intervals [place] Rate: 70 P: 55 MT: 192 QRS: 262 QRSD: 116 T: 34 QT: 419 QTc: 454 Interpretive Statements SINUS RHYTHM RIGHT AXIS DEVIATION POSSIBLE LEFT ATRIAL ENLARGEMENT RIGHT BUNDLE BRANCH BLOCK PATTERN CONSISTENT WITH PULMONARY DISEASE ABNORMAL ECG No previous ECG available for comparison Electronically Signed On 11-06-2023 16:52:57 CDT by Mundo Acuna D.O.
== END 2023-11-06 09:01 | disposition home or self-care (01) ==
PROVIDERS: PCP Family Medicine; Visit Provider Surgery
DX: K82.9 Disease of gallbladder, unspecified (principal); I10 Essential (primary) hypertension; Z01.818 Encounter for other preprocedural examination
CPT/HCPCS: 36415; 82150; 93005

== ENCOUNTER 2023-11-10 16:23 | Outpatient (CLI) | payer OTHER, BC, SELFPAY ==
--- NOTE | ~2023-11-10 | US_ITS ---
EXAMINATION: US right upper quadrant DATE: 11/10/2023 16:52 INDICATION: Right upper quadrant abdominal pain. TECHNIQUE: Multiple grayscale and Doppler ultrasound images of the abdomen were obtained. COMPARISON: CT abdomen and pelvis 09/26/2023 FINDINGS: The visualized portions of the head, body, and tail of the pancreas are normal. There is di ffuse hepatic steatosis. There is normal flow in main portal vein. The gallbladder is filled with gal lstones. No gallbladder wall thickening. There is a positive sonographic Wood sign. The common duct is normal and measures 4 mm. IMPRESSION: 1. Gallstones and positive sonographic Wood sign, which is indeterminate for acute cholecystitis. C onsider hepatobiliary scintigraphy. Reviewed, dictated and finalized at location A. IMPRESSION: 1. Gallstones and positive sonographic Wood sign, which is indeterminate for acute cholecystitis. Consider hepatobiliary scintigraphy.
== END 2023-11-10 16:24 | disposition home or self-care (01) ==
LOC: ANHIMG 16:23
PROVIDERS: PCP Family Medicine; Visit Provider Surgery
DX: R10.11 Right upper quadrant pain (principal); K80.20 Calculus of gallbladder without cholecystitis without obstruction
CPT/HCPCS: 76705

== ENCOUNTER 2023-11-12 04:00 | Day surgery (SDC) | payer OTHER, BC, SELFPAY ==
[2023-11-04 10:05] VITALS: BMI 34.7
--- NOTE | 2023-11-04 10:06 | PC.NURSE ---
Report to the Outpatient Waiting Room, entrance under the green pavilion located off [facility], at time _1130_ on date _[phone]_. Planned Procedure Time: _130pm_.? Time changes happen often and if your time is changed the preop area will call you the afternoon before. - You and your visitor will be asked to self-screen and do not enter if you have any COVID symptoms. Please call surgeon if you need to reschedule. - A mask is optional within the hospital at this time. Patients may have clear liquids (water, carbonated beverages, clear teas, apple juice) until 3 hours prior to surgery with a maximum of 20 ounces. - No food from midnight until time of surgery and no smoking Take only the following medications with a SIP of water on the morning of surgery: __Sertraline, Desmopressin, Nifedipine and if needed Alprazolam or pain medication. DO NOT STOP ANY OF YOUR OTHER PRESCRIPTION MEDICATIONS PRIOR TO SURGERY EXCEPT THE FOLLOWING Medications to discontinue per physician Encouraged patient to use other pain meds when needed instead of the Ibuprofen. Date to take last dose Please no make-up, nail albanian, hairspray, perfume, deodorant, or body powder the day of surgery.? No jewelry (including any body piercings) or valuables the day of surgery, leave them at home.? Please take a shower or bath the night before, or the morning of, surgery with an antibacterial soap.? Wear comfortable, loose fitting clothing.? - Jewelry must be removed prior to entering the operating room.? Rings and piercings that are not removed may be cut off. - The hospital will not accept responsibility for valuables.? - Please leave all valuables, including medications, at home the day of surgery. If you are going home after surgery, a licensed warehouse delivery driver must drive you home.? - NO public transportation without another adult if you receive anesthesia. - We recommend that an adult stay with you for 24 hours following discharge. - We also recommend that you do not drive, make important decision, drink alcoholic beverages, or take any drugs that were not prescribed by your health care provider for at least 24 hours after your discharge time. Follow any additional instructions given to you from your surgeon. Telephone instructions given to __Donavan__and asked if any additional questions and then verbalized understanding. Patient advised to call surgeon office or pre surgery nurse liaison [phone] if any additional questions.
[2023-11-12] VITALS (7 sets, daily range): BP systolic 117–153; BP diastolic 76–89; PULSE 73–84; RESP 14–18; TEMP 36.1–36.8; O2SAT 96–100; BMI 35.6
[2023-11-12] MEDS: LACTATED RINGERS 1,000 ML 30 ML IV CONT ×2 (12:05→15:28)
[2023-11-12] MEDS: ACETAMINOPHEN 500 MG TABLET 1000 MG PO (12:15)
[2023-11-12] MEDS: KETOROLAC 15 MG/ML VIAL (*BKC) IV PUSH (12:16)
[2023-11-12 12:27] LABS: Anion Gap 9 mmol/L (4-12); Blood Urea Nitrogen 10 mg/dL (7-17); Calcium 8.7 mg/dL (8.4-10.2); Carbon Dioxide 22 mmol/L (22-30); Chloride 104 mmol/L (98-107); Estimated CRCL calculation 120 ml/min; Estimated Glomerular Filt Rate > 60; Glucose 101 mg/dL (65-110); Potassium 3.7 mmol/L (3.4-5.0); Sodium 135 mmol/L (137-145)
--- NOTE | 2023-11-12 13:06 | WPDHPUPDATE1 ---
History and Physical Update Update Date/Time: 11/12/23 13:06 History and Physical has been reviewed, including an updated exam of the patient. There are NO changes in the patient's condition. Risks, benefits, and alternatives have been discussed and questions answered. Patient agrees to proceed with procedure.
--- NOTE | 2023-11-12 13:20 | PM.IMHP ---
H&P: HPI History of Present Illness Date/Time: 11/12/23 13:20 Chief Complaint: Symptomatic cholelithiasis Narrative: This is a 42-year-old woman presents laparoscopic cholecystectomy. She has a prior history severe abdominal pain and went to the emergency department was found to have findings suspicious for cholelithiasis. She then had a gallbladder ultrasound as an outpatient which did confirm cholelithiasis. She reports no changes since last seen in the office. Review of Systems Review of Systems: All systems reviewed & are unremarkable except as noted in HPI and below Constitutional: Constitutional: Denies chills, Denies fever(s), Denies headache(s) and Denies weight loss Eyes: Eyes: Denies change in vision ENT: Denies dizziness, Denies headache(s), Denies neck mass and Denies throat swelling Cardiovascular: Cardiovascular: Denies chest pain, Denies lightheadedness and Denies dyspnea Respiratory: Respiratory: Denies cough, Denies dyspnea and Denies wheezing Gastrointestinal: Gastrointestinal: Denies abdominal pain, Denies change in bowel habits, Denies nausea and Denies vomiting Genitourinary: Genitourinary: Denies hematuria and Denies dysuria Musculoskeletal: Musculoskeletal: Reports as per HPI Integumentary/Breasts: Skin/Breast: Reports as per HPI Neurologic: Denies dizziness and Denies headache(s) Allergic/Immunologic: Allergic/Immunologic: Denies throat swelling and Denies wheezing PMFSH Past Medical History Medical History Bleeding internal hemorrhoids Encounter for follow-up of acute deep vein thrombosis (DVT) of right lower extremity Essential hypertension H/O long-term (current) use of anticoagulants H/O: pituitary tumor History of blood clots clots in the leg and lung History of pulmonary embolus (PE) HTN (hypertension) Light sensitivity Mass in region of sella turcica present on magnetic resonance imaging Moderate episode of recurrent major depressive disorder Obesity PE (pulmonary thromboembolism) Persistent headaches Thrombosed external hemorrhoid Tobacco abuse Surgical History Surgical History H/O: hysterectomy Family History Family History Father Acute complete flaccid quadriplegia Mother Skin cancer Pre-diabetes Sibling COVID-19 Other Family history of allergic disorder Family history of cardiovascular disease Family history of malignant neoplasm Hypertension Social History Social History Smoking packs per day: 0.25 Smoking cigarettes per day: 5.0 Years smoked: 25 Smoking pack-years: 6.25 Smoking status: Current every day smoker Tobacco type: cigarettes Second hand tobacco smoke exposure: No Additional smoking assessment comments: QUIT 05/2018 Began again 05/2019 Alcohol intake: current Alcohol use details: socially Substance use: never Substance use type: does not use Lack of Transportation: No Lack of Food: Never True Current Housing: I Have Housing Concerned About Future Housing: No Difficulty Paying Gas/Electric Bills: No Difficulty Paying for Meds: No Currently Unemployed: No Education: High School Diploma/GED Difficulty w/ Childcare or Family Care: No Living arrangements: with family Occupation/Education: occupation Additional occupation/education comments: [employer]. Gender identity (if verbalized by the patient): Female Spiritual care concerns: No Meds Home Medications and Allergies Home Medications Medication Instructions Recorded Confirmed Type aspirin 81 mg tablet,delayed 81 mg PO DAILY #90 tabs 02/20/20 11/04/23 Rx release alprazolam 0.5 mg tablet 0.5 mg PO DAILY PRN anxiety #30 12/02/20 11/04/23 Rx tabs desmopressin 0.1 mg tablet 0.1
--- NOTE | 2023-11-12 13:31 | WPDANESEPPF ---
Anes - Initial Pre Proc Eval Procedure: Operation Date: 11/12/23 13:30 Proposed Procedures p Laparoscopic Cholecystectomy, Possible Open - Chilo May DO Date/Time: 11/12/23 13:31 Surgeon: Chilo May DO Pre Op Diagnosis: ruq pain Patient Data Age: 42 Gender: F Height: 1.68 m Weight: 100 kg Last Vital Signs Temp 97.0 F L 11/12/23 11:35 Pulse 80 11/12/23 11:35 Resp 16 11/12/23 11:35 BP 130/80 11/12/23 11:35 Pulse Ox 98 11/12/23 11:35 O2 Del Method Room Air 11/12/23 11:35 Allergies Allergy/AdvReac Type Severity Reaction Status Date / Time Penicillins Allergy Severe RASH, Verified 11/12/23 12:47 ANAPHALAXIS strawberry Allergy Severe Anaphylactic Verified 11/12/23 12:47 Shock codeine Allergy Intermediate VOMITING, Verified 11/12/23 12:47 RASH morphine Allergy Intermediate VOMITING, Verified 11/12/23 12:47 RASH erythromycin base Allergy Mild Rash Verified 11/12/23 12:47 topiramate [From Topamax] Allergy Other Verified 11/12/23 12:47 Home Medications Medication Instructions Recorded Confirmed Type aspirin 81 mg tablet,delayed 81 mg PO DAILY #90 tabs 02/20/20 11/04/23 Rx release alprazolam 0.5 mg tablet 0.5 mg PO DAILY PRN anxiety #30 12/02/20 11/04/23 Rx tabs desmopressin 0.1 mg tablet 0.1 mg PO BID 10/07/21 11/12/23 History sertraline 100 mg tablet 100 mg PO DAILY #90 tabs 02/18/23 11/12/23 Rx nifedipine 60 mg tablet,extended 60 mg PO DAILY #90 tabs 07/02/23 11/12/23 Rx release folic acid 400 mcg tablet 0.4 mg PO DAILY #90 tabs 08/06/23 11/12/23 Rx ibuprofen 800 mg tablet 800 mg PO TID PRN pain 7 days #21 09/26/23 11/04/23 Rx tabs ondansetron 4 mg disintegrating 4 mg PO Q8H PRN nausea and 09/26/23 11/04/23 Rx tablet vomiting #30 tabs oxycodone 5 mg tablet 5 mg PO Q4H PRN pain #14 tabs 09/26/23 11/04/23 Rx acetaminophen 500 mg tablet 1,000 mg PO TID PRN Pain 11/04/23 11/04/23 History Laboratory Tests 11/12/23 12:08 Sodium 135 L mmol/L (137-145) Potassium 3.7 mmol/L (3.4-5.0) Chloride 104 mmol/L (98-107) Carbon Dioxide 22 mmol/L (22-30) Anion Gap 9 mmol/L (4-12) BUN 10 mg/dL (7-17) Creatinine 0.60 L mg/dL (0.7-1.0) Estim Creat Clear Calc 120 ml/min Estimated GFR > 60 (59 - ) Glucose 101 mg/dL (65-110) Calcium 8.7 mg/dL (8.4-10.2) Patient hx anesthesia problems: none Family hx anesthesia problems: none Results Review: All pre-operative results and documents have been reviewed as part of the pre-operative evaluation. [facility] Past Medical History Medical History Bleeding internal hemorrhoids Encounter for follow-up of acute deep vein thrombosis (DVT) of right lower extremity Essential hypertension H/O long-term (current) use of anticoagulants H/O: pituitary tumor History of blood clots clots in the leg and lung History of pulmonary embolus (PE) HTN (hypertension) Light sensitivity Mass in region of sella turcica present on magnetic resonance imaging Moderate episode of recurrent major depressive disorder Obesity PE (pulmonary thromboembolism) Persistent headaches Thrombosed external hemorrhoid Tobacco abuse Surgical History Surgical History H/O: hysterectomy Family History Family History Father Acute complete flaccid quadriplegia Mother Skin cancer Pre-diabetes Sibling COVID-19 Other Family history of allergic disorder Family history of cardiovascular disease Family history of malignant neoplasm Hypertension Social History Social History Smoking packs per day: 0.25 Smoking cigarettes per day: 5.0 Years smoked: 25 Smoking pack-years: 6.25 Smoking status: Current sri
[2023-11-12] MEDS: ceFAZolin 2 GM/D5W 50 ML 2 GM/50 ML BAG IVPB (13:35)
--- NOTE | 2023-11-12 14:26 | W.PM.PROC2 ---
Procedure Note - Detailed Date of Procedure 11/12/23 Pre-op Diagnosis ruq pain, symptomatic cholelithiasis Post-op Diagnosis Same Procedure Performed Laparoscopic Cholecystectomy Surgeon Chilo May, DO Anesthesia General and Local (0.5% bupivacaine) Indications This is a 42-year-old woman who presents with right upper quadrant pain that started about 6 weeks ago. She had a severe episode of pain and ended up in the emergency department. She was suspected of having biliary colic and a bedside ultrasound showed possible signs of cholelithiasis. She had a follow-up ultrasound as an outpatient which confirmed evidence of cholelithiasis. Discussions were made with the patient about treatment options and decision was made to proceed with laparoscopic cholecystectomy, possible open. Findings Laparoscopic cholecystectomy was performed. The patient's gallbladder appeared somewhat elongated and filled with multiple gallstones. Gallstones even extended into the neck and the 1st portion of the cystic duct. I was then able to find an area of the cystic duct that appeared to be free of any stones. The cystic duct tapered down to normal size here. No other intra-abdominal abnormalities were noted. The gallbladder was removed and sent to the lab for pathology. Description of Procedure Procedure as well as risks, benefits, and alternatives were discussed with patient. Written consent was obtained and placed in chart prior to procedure. The patient was brought back to surgical suite. Patient was placed in supine position on operating table. Time-out was done to confirm patient and procedure. Patient was then intubated by the anesthesia department. Abdomen was prepped and draped in sterile fashion using chlorhexidine prep. 0.5% bupivacaine with epinephrine was infiltrated at each site of incision. A 5 millimeter incision was made near the umbilicus, and a 5 millimeter Optiview trocar was advanced through the abdominal layers under direct visualization. Once inside the abdominal cavity, carbon dioxide was insufflated to create a pneumoperitoneum. The camera was inserted and the abdomen was inspected. No immediate abnormalities were identified. The patient was placed in reverse Trendelenburg position and rotated slightly to the left. An 11 millimeter incision was made in the subxiphoid region, and an 11 millimeter trocar was inserted under direct visualization. Two 5 millimeter incisions were made in the right upper quadrant, and two 5 millimeter trocars were inserted under direct visualization. The gallbladder was identified and grasped at the fundus and retracted superiorly. It was then grasped at the infundibulum retracted laterally. Careful dissection around the neck of the gallbladder was performed using blunt dissection with a [place] grasper and hook electrocautery. The cystic duct was identified, and a window was created behind it. The cystic artery was also identified and a window was created behind it. The critical view of safety was identified, visualizing the cystic duct running directly into the neck of the gallbladder, and the cystic artery running directly into the wall of the gallbladder. A 5 millimeter clip paratransit driver was then used to place 2 clips proximally and 1 clip distally on both the cystic duct and cystic artery. They were then both transected using endoscopic scissors. Once safely away from the jennifer hepatitis, the gallbladder was dissected free from the liver bed using hook electrocautery. Hemostasis was achieved along the way. The gallbladder was removed completely and then removed through the subxiphoid port. The liver bed was then inspected. Hemostasis appeared adequate, and our clips appeared secure. The area was gently irrigated with sterile saline. No other abnormalities were seen. The patient was flattened out in bed, and 1 final inspection was made around the abdominal cavity. The subxiphoid port was removed, and a Cart
[2023-11-12 14:32] LABS: Glucose Point of Care 117 mg/dl (65-105)
[2023-11-12] MEDS: oxyCODONE HCL (*CRX) 5 MG TAB IR PO (16:03)
== END 2023-11-12 16:05 | disposition home or self-care (01) ==
PROVIDERS: Anesthesiology; PCP Family Medicine; Visit Provider Surgery
PROC: 0FT44ZZ Resection of Gallbladder, Percutaneous Endoscopic Approach (ICD-10-PCS; CPT 47562; principal; 2023-11-12 13:30)
DX: K80.10 Calculus of gallbladder with chronic cholecystitis without obstruction (principal); I10 Essential (primary) hypertension; Z86.711 Personal history of pulmonary embolism; Z86.718 Personal history of other venous thrombosis and embolism; E66.9 Obesity, unspecified; Z68.35 Body mass index [BMI] 35.0-35.9, adult; F17.210 Nicotine dependence, cigarettes, uncomplicated; Z79.82 Long term (current) use of aspirin; Z79.899 Other long term (current) drug therapy
CPT/HCPCS: 47562; 36415; 80048; 82150; 82948; 88304; 93005; A9270; J0690; J1100; J1171; J1885; J2003; J2250; J2405; J2704; J3010; J7030; J7120

== ENCOUNTER 2025-01-22 16:13 | Outpatient (CLI) | payer OTHER, BC, SELFPAY ==
--- NOTE | ~2025-01-22 | XR_ITS ---
EXAMINATION: XR chest 2V, 01/22/2025 16:18 TECHNICAL SME HISTORY: R05.8 - Other specified cough COMPARISON: No comparisons available. Technique: 2 views obtained. Findings: The lungs are clear, no effusion. No pneumothorax. Heart is normal size. Mediastinal and hilar contours are within normal limits. Bony thorax no acute abnormality. Impression: No acute cardiopulmonary abnormality. Reviewed, dictated and finalized at location P. NICAL SME Impression: No acute cardiopulmonary abnormality.
== END 2025-01-22 16:14 | disposition home or self-care (01) ==
LOC: MICIMG 16:14
PROVIDERS: PCP Family Medicine; Visit Provider Nurse Practitioner Family
DX: R05.8 Other specified cough (principal)
CPT/HCPCS: 71046